=== PATIENT | male | born 1960 | race Caucasian/White ===

== ENCOUNTER 2016-09-05 10:49 | Inpatient (IN) ==
[2016-09-05] MEDS ORDERED: Nitroglycerin 0.4 MG TAB.SUBL SL ONE (11:35)
[2016-09-05 11:57] LABS: Basophils # 0.1 K/mcL (0.0-0.2); Basophils % 0.7 %; Eosinophils # 0.1 K/mcL (0.0-0.6); Eosinophils % 1.3 %; Hematocrit 32.3 % (37.5-50.1); Hemoglobin 9.9 g/dL (12.9-16.9); Immature Granulocytes % 0.3 % (0-4); Immature Platelets 2.4 % (1.1-6.1); Lymphocytes # 1.2 K/mcL (0.6-4.6); Lymphocytes % 12.6 %; Mean Corpuscular HGB Conc 30.7 g/dL (31.6-35.5); Mean Corpuscular Hemoglobin 29.4 pg (28.0-33.3); Mean Corpuscular Volume 95.8 fL (83.0-100.0); Mean Platelet Volume 9.4 fL (9.4-12.4); Monocytes # 0.5 K/mcL (0.0-1.3); Monocytes % 5.4 %; Neutrophils # 7.4 K/mcL (1.6-8.9); Platelet Count 202 K/mcL (140-400); Red Blood Count 3.37 M/mcL (4.19-5.50); Red Cell Distribution Width 17.6 % (11.5-14.5); Segmented Neutrophils % 79.7 %
[2016-09-05 12:04] LABS: INR 1.2; Prothrombin Time 13.1 Seconds (9.4-12.1)
[2016-09-05 12:07] LABS: Activated Partial Thrombo Time 34.6 Seconds (26.0-36.0)
[2016-09-05 12:14] LABS: Albumin 2.4 g/dL (3.5-5.0); Albumin/Globulin Ratio 0.5 (1.1-2.2); Bilirubin,Direct 0.3 mg/dL (0.0-0.5); Bilirubin,Indirect 0.3 mg/dL (0.0-1.2); Bilirubin,Total 0.6 mg/dL (0.2-1.2); Calcium 9.2 mg/dL (8.6-10.8); Potassium 4.5 mEq/L (3.5-4.5); Total Protein 7.4 g/dL (6.0-8.3)
--- NOTE | 2016-09-05 13:02 | Emergency Department Note ---
Disposition Clinical Impression: Acute respiratory distress, Bilateral pleural effusion Heart failure due to valvular disease Qualifiers: Congestive heart failure type: systolic Congestive heart failure chronicity: acute on chronic Qualified Code(s): I50.23 - Acute on chronic systolic ( congestive) heart failure; I38 - Endocarditis, valve unspecified Anemia Qualifiers: Anemia type: unspecified type Qualified Code(s): D64.9 - Anemia, unspecified Disposition: Admitted As Inpatient Condition: Serious Time of Disposition: 12:56 SOB HPI - General Chief Complaint: ED Shortness of Breath/Dyspnea Stated Complaint: RITA, recent open heart Time Seen by Provider: 09/05/16 10:59 Source: patient, family, EMS Mode of arrival: EMS Limitations: other Nursing Notes Reviewed: Yes Vital Signs Reviewed: Yes - History of Present Illness 56-year-old male complains of shortness of breath times this morning @ 0630 hrs. patient presents with abnormal vital signs of tachypnea 28 respirations him and hypertensive at 180/118. SPO2 96 on 4 L. 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 Patient received a cadaver valve. Patient is also on hemodialysis Monday and was doing fine after discharge from [facility] up until yesterday when his son states he required oxygen during the day and at night when he only uses at night regularly. Patient certainly had dyspnea on exertion this morning was unable to get dressed on his own and was unable to travel to 100 feet without feeling very short of breath. Patient has no chest pain - Related Data Home Medications Medication Instructions Recorded Confirmed Aspirin 81 mg PO DAILY 04/12/15 09/05/16 Insulin LISPRO [HumaLOG] 5 - 10 units SQ TID 04/12/15 09/05/16 Albuterol Sulfate [Ventolin Hfa] 2 puff IH Q6H PRN 07/17/16 09/05/16 Oxygen 3 l .ROUTE DAILY 07/17/16 09/05/16 Ergocalciferol (VITAMIN D2) 50,000 unit PO QWEEK 07/18/16 09/05/16 [Drisdol (50,000 Unit)] Benzonatate [Tessalon] 200 mg PO TID PRN 08/05/16 09/05/16 Amiodarone [Cordarone] 200 mg PO DAILY 09/05/16 09/05/16 Atorvastatin [Lipitor] 40 mg PO HS 09/05/16 09/05/16 Carvedilol [Coreg] 12.5 mg PO BIDWM 09/05/16 09/05/16 HYDROcodone/Acet 5/325 mg [Milton 1 tab PO Q6H PRN 09/05/16 09/05/16 5-325 mg] Penicillin G Sodium 6,000,000 unit IV Q12H 09/05/16 09/05/16 Vitamin B Complex [B Complex] 1 tab PO DAILY 09/05/16 09/05/16 Previous Rx's Medication Instructions Recorded Insulin Glargine,Hum.rec.anlog 20 unit SQ HS #0 07/13/16 [Lantus Solostar] Allergies Allergy/AdvReac Type Severity Reaction Status Date / Time No Known Allergies Allergy Verified 07/17/16 10:10 All systems ED: reviewed and negative except as stated. Constitutional: Reports: weakness. Denies: fever, chills Eyes: Denies: eye pain, eye discharge ENT ED: Denies: ear pain, throat pain Cardiovascular: Reports: dyspnea on exertion, orthopnea, paroxysmal nocturnal dyspnea. Denies: chest pain, palpitations Respiratory: Reports: cough, dyspnea, wheezes Gastrointestinal: Reports: nausea. Denies: abdominal pain, vomiting Genitourinary: Denies: urgency, dysuria Musculoskeletal: Denies: back pain, neck pain Integumentary: Denies: rash, abrasion Neurological: Denies: headache, weakness Psychiatric: Reports: anxiety Endocrine: Reports: fatigue Hematological/Lymphatic: Denies: easy bleeding, easy bruising Allergic/Immunologic: Denies: facial swelling, urticaria Past Medical History - Past Medical History Attestation: Yes The following information was validated with the patient. Medical history: Reports: CHF, coronary artery disease, diabetes, dialysis, hyperlipidemia, hypertension, myocardial infarction, renal disease Surgical history: Reports: coronary bypass (CABG) Psychiatric history: Reports: no psych history - Social History Smoking Status: Former smoker Smokeless Tobacco Status: No Alcohol use: Reports: none Drug use: Reports: none Physical Exam Vital Signs Temperature 97.5 F L 09/05/16 10:56 Pulse Rate 99 09/05/16 10:56 Respiratory Rate 28 09/05/16 10:56 Blood Pressure 180/118 09/05/16 10:56 O2 Sat by Pulse Oximetry 96 09/05/16 10:56 Temperature 97.5 F L 09/05/16 10:56 Pulse Rate 86 09/05/16 12:26 Respiratory Rate 26 09/05/16 12:26 Blood Pressure 137/99 09/05/16 12:26 O2 Sat by Pulse Oximetry 100 09/05/16 12:26 Oxygen Delivery Oxygen Delivery Bipap -General Appearance: Patient is a 56-year-old male who sitting on edge of the bed leaning forward and appears in distress. Patient is diaphoretic. -Neurological exam: Cranial nerves II-12 intact, no focal deficits observed, strength equal 5/5 bilaterally in upper and lower extremities, cerebellar motion test negative. Negative loss of sensation - Head Head exam: atraumatic, normocephalic, normal inspection - Eye Eye exam: Present: normal appearance, PERRL, EOMI, negative for scleral icterus negative for conjunctival pallor - ENT ENT exam: normal exam, normal oropharynx, mucous membranes moist - Neck Neck exam: Present: normal inspection, full ROM, trachea midline, negative JVD - Chest Chest inspection: Present: Patient has bilateral equal rise and fall of chest wall. Tender to palpation along surgical scar is midline and patient's chest secondary to open heart surgery.- Respiratory Respiratory exam: Heart snapping sound heard right lower lung field, distant lung sounds auscultated bilaterally Cardiovascular Cardiovascular exam: Present: regular rate, normal rhythm, normal heart sounds, without murmurs rubs or gallops. - Abdominal Exam Abdominal exam: Present: soft, nondistended, Non-Tender light and deep palpation in all quadrants. Bowel sounds normoactive throughout all 4 quadrants. Negative for hyper or hyperresonance. - Extremities Exam Extremities exam: Present: normal inspection, full ROM, negative pedal edema pulses equal regular of her lower extremities but weak. - Back Exam Back exam: Present: normal inspection, full ROM. Absent: tenderness, CVA tenderness (R), CVA tenderness (L) - Psychiatric Psychiatric exam: Present: normal affect, normal mood - Skin Skin exam: Present: warm, dry, intact, normal color - General Limitations: other General appearance: in distress Course Course Narrative: She was seen and examined. Labs ordered chest x-ray ordered BiPAP ordered - Reevaluation(s) Reevaluation #1: bedside ultrasound shows no signs of pericardial effusion. Waiting for BiPAP Time: 11:34 Reevaluation #2: BiPAP was initiated. Patient feels relief and breathing rate has been reduced from 28, to 20-22 breaths or minute. Time: 11:56 Reevaluation #3: Patient currently experiencing change in heart rate patient. The bradycardia of 46 bpm intermittently. Patient has no change in mental status and states he also otherwise feels fine. Ordered EKG and reassessing patient. Time: 13:31 - Consultations Consultation #1: Dr. Simon refused admission secondary to discomfort level to have patient's comorbidities and recommended transfer to [facility]. Time: 12:36 Consultation #2: Dr. Maynard Accepted for admission Time: 12:56 Vital Signs Temperature 97.5 F L 09/05/16 10:56 Pulse Rate 99 09/05/16 10:56 Respiratory Rate 28 09/05/16 10:56 Blood Pressure 180/118 09/05/16 10:56 O2 Sat by Pulse Oximetry 96 09/05/16 10:56 Temperature 97.4 F L 09/05/16 21:40 Pulse Rate 95 09/05/16 16:39 Respiratory Rate 24 09/05/16 21:40 Blood Pressure 134/49 09/05/16 21:40 O2 Sat by Pulse Oximetry 94 L 09/05/16 16:39 Oxygen Delivery Oxygen Delivery Bipap Shortness of Breath/Dyspnea - MDM Narrative Medical decision making narrative: Mr. Sandhu is a 56-year-old male whose conditions concerning for worsening chronic heart failure versus acute exacerbation of chronic heart failure secondary to sepsis secondary to possible pneumonia or endocarditis. Patient has severe respiratory distress requiring use of BiPAP. BiPAP was applied and patient was able to ventilate and oxygenate better. Patient also on hemodialysis. CXR: Chest X-Ray 09/05/16 11:28 IMPRESSION: Venous lines project in normal positions. Right basilar pleural effusion and atelectasis or airspace disease. Interstitial opacities, likely pulmonary edema. D/ / Carlton Deshpande MD / Carlton Deshpande MD Interpreting Provider: Carlton Deshpande MD Patient's CBC see shows anemia at 9.9 hemoglobin. Patient's troponin was 0.04. Patient's BNP was greater than 5000. Patient does not appear septic at this time the patient is fluid overloaded. The patient does have an acute exacerbation of his HF. Dr. Maynard accepted Pt for admission. - Medical Records Medical records reviewed: Yes I reviewed the patient's medical records. - Lab Data Lab results reviewed: Yes I reviewed the patient's lab results. Lab results narrative: Short CBC 09/05/16 Range/Units 11:46 WBC 9.2 (4.3-11.1) K/mcL Hgb 9.9 L (12.9-16.9) g/dL Hct 32.3 L (37.5-50.1) % Plt Count 202 (140-400) K/mcL Neutrophils # 7.4 (1.6-8.9) K/mcL BMP 09/05/16 Range/Units 11:46 Sodium 140 (136-145) mEq/L Potassium 4.5 (3.5-4.5) mEq/L Chloride 104 (98-109) mEq/L Carbon Dioxide 23 (19-29) mEq/L BUN 28 H (8-26) mg/dL Creatinine 4.75 H (0.72-1.25) mg/dL Glucose 151 H (70-99) mg/dL Calcium 9.2 (8.6-10.8) mg/dL Cardiac Enzymes 09/05/16 Range/Units 11:46 Troponin I 0.04 H* (0-0.03) ng/mL Liver Function 09/05/16 Range/Units 11:46 Total Bilirubin 0.6 (0.2-1.2) mg/dL Direct Bilirubin 0.3 (0.0-0.5) mg/dL AST 13 (5-34) Units/L ALT 9 (0-55) Units/L Alkaline Phosphatase 127 H (38-126) Units/L Albumin 2.4 L (3.5-5.0) g/dL Result diagrams: 09/05/16 11:46 09/05/16 11:46 Lab Results 09/05/16 09/05/16 09/05/16 Range/Units 11:46 11:46 11:46 WBC 9.2 (4.3-11.1) K/mcL RBC 3.37 L (4.19-5.50) M/mcL Hgb 9.9 L (12.9-16.9) g/dL Hct 32.3 L (37.5-50.1) % MCV 95.8 (83.0-100.0) fL MCH 29.4 (28.0-33.3) pg MCHC 30.7 L (31.6-35.5) g/dL RDW 17.6 H (11.5-14.5) % Plt Count 202 (140-400) K/mcL MPV 9.4 (9.4-12.4) fL Immature Gran % 0.3 (0-4) % Seg Neutrophils % 79.7 % Lymphocytes % 12.6 % Monocytes % 5.4 % Eosinophils % 1.3 % Basophils % 0.7 % Neutrophils # 7.4 (1.6-8.9) K/mcL Lymphocytes # 1.2 (0.6-4.6) K/mcL Monocytes # 0.5 (0.0-1.3) K/mcL Eosinophils # 0.1 (0.0-0.6) K/mcL Basophils # 0.1 (0.0-0.2) K/mcL Immature Plt Fraction 2.4 (1.1-6.1) % PT 13.1 H (9.4-12.1) Seconds INR 1.2 APTT 34.6 (26.0-36.0) Seconds Sodium 140 (136-145) mEq/L Potassium 4.5 (3.5-4.5) mEq/L Chloride 104 (98-109) mEq/L Carbon Dioxide 23 (19-29) mEq/L BUN 28 H (8-26) mg/dL Creatinine 4.75 H (0.72-1.25) mg/dL Est GFR ( Amer) 16 L (> 60) Est GFR (Non-Af Amer) 13 L (> 60) BUN/Creatinine Ratio 6 (6-26) Glucose 151 H (70-99) mg/dL Calculated Osmolality 298 (280-300) Lactic Acid (0.5-2.2) mmol/L Calcium 9.2 (8.6-10.8) mg/dL Total Bilirubin 0.6 (0.2-1.2) mg/dL Direct Bilirubin 0.3 (0.0-0.5) mg/dL Indirect Bilirubin 0.3 (0.0-1.2) mg/dL AST 13 (5-34) Units/L ALT 9 (0-55) Units/L Alkaline Phosphatase 127 H (38-126) Units/L Troponin I (0-0.03) ng/mL B-Natriuretic Peptide (0-100) pg/mL Serum Total Protein 7.4 (6.0-8.3) g/dL Albumin 2.4 L (3.5-5.0) g/dL Globulin 5.0 H (2.4-3.5) g/dL Albumin/Globulin Ratio 0.5 L (1.1-2.2) 09/05/16 09/05/16 09/05/16 Range/Units 11:46 11:46 11:46 WBC (4.3-11.1) K/mcL RBC (4.19-5.50) M/mcL Hgb (12.9-16.9) g/dL Hct (37.5-50.1) % MCV (83.0-100.0) fL MCH (28.0-33.3) pg MCHC (31.6-35.5) g/dL RDW (11.5-14.5) % Plt Count (140-400) K/mcL MPV (9.4-12.4) fL Immature Gran % (0-4) % Seg Neutrophils % % Lymphocytes % % Monocytes % % Eosinophils % % Basophils % % Neutrophils # (1.6-8.9) K/mcL Lymphocytes # (0.6-4.6) K/mcL Monocytes # (0.0-1.3) K/mcL Eosinophils # (0.0-0.6) K/mcL Basophils # (0.0-0.2) K/mcL Immature Plt Fraction (1.1-6.1) % PT (9.4-12.1) Seconds INR APTT (26.0-36.0) Seconds Sodium (136-145) mEq/L Potassium (3.5-4.5) mEq/L Chloride (98-109) mEq/L Carbon Dioxide (19-29) mEq/L BUN (8-26) mg/dL Creatinine (0.72-1.25) mg/dL Est GFR ( Amer) (> 60) Est GFR (Non-Af Amer) (> 60) BUN/Creatinine Ratio (6-26) Glucose (70-99) mg/dL Calculated Osmolality (280-300) Lactic Acid 0.7 (0.5-2.2) mmol/L Calcium (8.6-10.8) mg/dL Total Bilirubin (0.2-1.2) mg/dL Direct Bilirubin (0.0-0.5) mg/dL Indirect Bilirubin (0.0-1.2) mg/dL AST (5-34) Units/L ALT (0-55) Units/L Alkaline Phosphatase (38-126) Units/L Troponin I 0.04 H* (0-0.03) ng/mL B-Natriuretic Peptide > 5000 H (0-100) pg/mL Serum Total Protein (6.0-8.3) g/dL Albumin (3.5-5.0) g/dL Globulin (2.4-3.5) g/dL Albumin/Globulin Ratio (1.1-2.2) - Radiology Data Radiology results reviewed: Yes I reviewed the patient's radiology results. Chest X-Ray 09/05/16 11:28 IMPRESSION: Venous lines project in normal positions. Right basilar pleural effusion and atelectasis or airspace disease. Interstitial opacities, likely pulmonary edema. D/ / Carlton Deshpande MD / Carlton Deshpande MD Interpreting Provider: Carlton Deshpande MD - EKG Data EKG attestation: Yes I reviewed and interpreted this EKG. Attestation Statement - Attestation Attestation: For this encounter, I have reviewed the resident, O[employer] WORK[employer]IST, or PA documentation, treatment plan, and medical decision making; and I have had face to face time with this patient. 6-year-old male presents with difficulty breathing. Patient states that his breathing has significantly worsened over the past 24-48 hours. Patient now is diaphoretic at rest, having significant respiratory distress in the emergency department. 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 His valve was replaced one month ago at [facility]. He has followed Dr. Montague for cardiology in the past. Patient was initially tachycardic, hypertensive, tachypneic with rales on bilateral posterior lung ramirez. Patient was given nitroglycerin with significant improvement of symptoms. He further improved after administration of BiPAP. X- ray shows bilateral venous congestion and a right pleural effusion. EKG initially showed sinus tachycardia with a rate of 100 and right bundle-branch block. Repeat EKG after interventions showed sinus bradycardia with a rate of 58 with multiple PVCs and continued right bundle branch block. Patient agreed with plan for admission to the hospital and requested to stay at [facility] and did not want to be transferred to [facility]. I spoke with Dr. Montague who agreed that the patient was likely able to stay at [facility] for continuation of his care. Dr. Simon refused the admission stating that she would "not know what to do" if the patient's condition worsened and was concerned that we did not have a echocardiogram on file since the patient's aortic valve replacement.. I contacted Dr. Maynard who is the labor and employment paralegal on-call for Dr. Montague who agreed to admit the patient to the hospital with internal medicine consult for the patient's other comorbidities.
--- NOTE | 2016-09-05 15:53 | Cardiology History & Physical ---
Date of Encounter: 09/05/16 Time of Encounter: 15:44 Assessment and Plan (1) Systolic CHF Current Visit: Yes Status: Acute 08/18/16 EF 26%--global hypokinesis with severe global systolic dysfunction. RV mildly enlarged with moderately reduced systolic function. BNP >5000. CXR shows right basilar pleural effusion and atelectasis or airspace disease. Interstitial opacities likely pulmonary edema. Suspect current symptoms/fluid volume overload are multifactoral in combination with his ESRD on dialysis--last dialysis session Monday, was scheduled for today. Dr. Church consulted for HD to help with fluid volume status. Pt makes little to no urine, so diuretics are not effective. Will continue to monitor. Recommed strict I/Os, daily weights, sodium and fluid restriction. If EF remains <35% 3 months after valve replacement, will need to discuss outpt ICD. Qualifiers: Congestive heart failure chronicity: acute on chronic Qualified Code(s): I50.23 - Acute on chronic systolic (congestive) heart failure (2) S/P aortic valve replacement Current Visit: Yes Status: Acute S/P bioprosthetic AVR 08/10/16 for S. Bovis bacteremia, subsequently causing aortic valve endocarditis. Is on IV Penicillin 6 million units [id number] x 4 weeks. End date 09/07/16--will continue until this date while inpt. Echo08/18/[address] #[address] [place]o bioprosthetic valve implanted 08/10 with peak and MG of 14.5 mmHg and 8 mmHg. DI 0.45 with estimated ROBI 1.56cm2, mild- moderate MR, traice-mild TR. (3) Fluid overload Current Visit: Yes Status: Acute Multifactoral, as above--systolic CHF and ESRD on dialysis M, W, F. Last session was Monday. Nephrology consulted for HD. Makes little to no urine, so need HD to improve volume status, as diuretics will not benefit. Qualifiers: Hypervolemia type: other Qualified Code(s): E87.79 - Other fluid overload (4) Coronary artery disease Current Visit: Yes Status: Chronic S/P CABG x 4 04/2015. Continue ASA, Statin, BB, DIANA-I. Qualifiers: Coronary Disease-Associated Artery/Lesion type: bypass graft [place] vs. transplanted heart: [place] heart Associated angina: without angina Qualified Code(s): I25.810 - Atherosclerosis of coronary artery bypass graft(s) without angina pectoris (5) End stage renal disease on dialysis Current Visit: Yes Status: Chronic Nephrology consulted for HD while inpt. (6) Hypertension, uncontrolled Current Visit: Yes Status: Chronic BP 180/110 on presentation--currently 150s/100s. Per son, BP has been increasing since valve replacement. On Coreg 12.5mg BID. Lisinopril 10mg daily was just restarted on . Will increase DIANA-I and order PRN IV Hydralazine. Continue to monitor and make adjustments to antihypertensives as necessary. (7) Obesity (BMI 30-39.9) Current Visit: Yes Status: Chronic Lifestyle modification necessary. (8) Elevated troponin Current Visit: Yes Status: Acute Borderline--0.04 in setting of fluid volume overload, systolic CHF, hypertensive urgency, and ESRD on dialysis. Nondiagnostic for ACS. Pt denies chest pain. (9) Cardiomyopathy Current Visit: Yes Status: Acute EF prior to AVR was 40%. S/P AVR echo 08/18 EF noted to be 26%. Continue BB and DIANA-I. Recheck echo in 3 months and if EF remains <35%, will need to discuss ICD. Qualifiers: Cardiomyopathy type: unspecified Qualified Code(s): I42.9 - Cardiomyopathy , unspecified (10) Type 2 diabetes mellitus Current Visit: Yes Status: Chronic Insulin dependent. Sliding scale as inpt. Qualifiers: Diabetes mellitus complication status: with unspecified complications Diabetes mellitus exterminator helper insulin use: with prison use Qualified Code(s) : E11.8 - Type 2 diabetes mellitus with unspecified complications; Z79.4 - jail (current) use of insulin History of Present Illness Chief complaint: Dyspnea HPI: Mr. Sandhu is a 56 year old male with PMH signficant for CAD s/p 4v CABG ( ), HTN, ESRD on dialysis, obesity, DMII, combined systolic and diastolic CHF, recent S. bovis bacteremia and subsequent aortic valve endocarditis--this was discovered 07/2016 and he was transferred to [facility] to [facility] for surgical intervention. He had a redo sternotomy and AVR with 25mm [place] Rodrigo Trifecta valve and aortic valve augmentation with bovine pericardium. He was discharged 08/18/16 and has been stable until he woke this AM with worsening dyspnea. He was scheduled for dialysis today---has not had it since Monday. He is on a , W, schedule. He reported dyspnea that was not improving with O2 NC and sats were in the lower 90s. He notes a cough over the past couple days-- productive and brown in color. He has noticed slight increase in lower extremity edema today, but reports it is not too significant. He denies chest pain, dizziness, lightheadedness, syncope, palpitations. He is currently on BiPAP and reports feeling better. He makes little to no urine with his ESRD. BNP found to be >5000. CXR revealed right basilar pleural effusion and atelectasis or airspace disease. Interstitial opacities likely pulmonary edema. Troponin 0.04. BP 180/118 on presentation--reports increasing blood pressure since valve replacement--has been running 150s/100s at home. Records reviewed from [facility]. Most recent echo 08/18/16 EF 26%--global hypokinesis with severe global systolic dysfunction. RV mildly enlarged with moderately reduced systolic function. Moderate biatrial enlargement. #[address] Rodrigo bioprosthetic valve implanted 08/10 with peak and MG of 14.5 mmHg and 8 mmHg. DI 0.45 with estimated ROBI 1.56cm2, mild-moderate MR, traice-mild TR. Past Med Surg Social Fam HX - Past Medical History Medical history: CHF, coronary artery disease, diabetes, dialysis, hyperlipidemia, hypertension, myocardial infarction, renal disease, valvular heart disease Psychiatric history: no psych history - Past Surgical History Surgical History: coronary bypass (CABG), other (Aortic valve replacement.) - Social History Smoking Status: Former smoker Smokeless Tobacco Status: No Alcohol use: none Drug use: none - Family History Father Family Member Ethnicity: Non- Living Status: Hx Family Cardiac Disorders: No Hx Family Respiratory Disorders: No Hx Family Cancer: No Hx Family GI Disorders: No Hx Family Endocrine Disorder: No Hx Family Neuromuscular Disorders: No Hx Family Neurologic Disorders: No Hx Family HEENT Disorders: No Hx Family Autoimmune Disorders: No Medications and Allergies Aspirin 81 mg PO DAILY 04/12/15 [History] Insulin LISPRO [HumaLOG] 5 - 10 units SQ TID 04/12/15 [History] Ascorbic Acid [Vitamin C] 500 mg PO DAILY #20 tablet 11/23/16 [Rx] Calcium Carbonate [Tums] 1,000 mg PO TID #30 tab.chew 07/13/16 [Rx] Insulin Glargine,Hum.rec.anlog [Lantus Solostar] 20 unit SQ HS #0 07/13/16 [Rx] Albuterol Sulfate [Ventolin Hfa] 2 puff IH Q6H PRN 07/17/16 [History] Oxygen 3 l .ROUTE DAILY 07/17/16 [History] Ergocalciferol (VITAMIN D2) [Drisdol (50,000 Unit)] 50,000 unit PO QWEEK [History] Carvedilol [Coreg] 3.125 mg PO BIDWM #60 tablet 07/22/16 [Rx] Furosemide [Lasix] 40 mg PO DAILY PRN #20 tablet 07/22/16 [Rx] Benzonatate [Tessalon] 200 mg PO TID PRN 08/05/16 [History] Lisinopril [Zestril] 10 mg PO DAILY 08/05/16 [History] Atorvastatin [Lipitor] 40 mg PO HS 09/05/16 [History] Folic Acid 1 mg PO DAILY 09/05/16 [History] HYDROcodone/Acet 5/325 mg [[place] 5-325 mg] 1 tab PO Q6H PRN 09/05/16 [History] Penicillin G Sodium 6,000,000 unit IV Q12H 09/05/16 [History] Vitamin B Complex [B Complex] 1 tab PO DAILY 09/05/16 [History] Allergies No Known Allergies Allergy (Verified 07/17/16 10:10) All Systems Review: A 10-system review of systems was performed and is negative for pertinent findings except as documented above in the HPI. - Cardiovascular Cardiovascular: as per HPI, dyspnea at rest, dyspnea on exertion, leg edema, orthopnea - Respiratory Respiratory: cough, dyspnea Physical Examination Vital Signs, Last 4 Hours Resp BP 09/05/16 14:45 24 148/110 Vital Signs Temp Pulse Resp BP Pulse Ox 09/05/16 14:45 24 148/110 09/05/16 13:21 51 26 153/104 100 09/05/16 12:26 86 26 137/99 100 09/05/16 11:49 34 95 09/05/16 11:22 95 28 154/106 96 09/05/16 10:56 97.5 F L 99 28 180/118 96 Intake and Output 09/04/16 09/05/16 09/05/16 23:59 07:59 15:59 Other: Weight 61.235 kg Patient Weight 09/05/16 23:59 Weight 61.235 kg General: Conversant, Other (on Bipap) HEENT: Atraumatic, Normocephaly, Mucus Membranes Moist Neck: Normal carotid pulses Cardiac: Reg Rate and Rhythm, Normal S1 and S2, Other (grade 2 SANDRA) Lungs: Other (diminished) Neuro: Alert and responsive, No focal deficits noted Abdomen: Soft, Non-Tender Skin: No rashes noted on visualized skin Musculoskeletal: No Chest Wall Tenderness Extremities: Other (mild BLE edema) Results 09/05/16 11:46 09/05/16 11:46 Short CBC 09/05/16 Range/Units 11:46 WBC 9.2 (4.3-11.1) K/mcL Hgb 9.9 L (12.9-16.9) g/dL Hct 32.3 L (37.5-50.1) % Plt Count 202 (140-400) K/mcL Neutrophils # 7.4 (1.6-8.9) K/mcL BMP 09/05/16 Range/Units 11:46 Sodium 140 (136-145) mEq/L Potassium 4.5 (3.5-4.5) mEq/L Chloride 104 (98-109) mEq/L Carbon Dioxide 23 (19-29) mEq/L BUN 28 H (8-26) mg/dL Creatinine 4.75 H (0.72-1.25) mg/dL Glucose 151 H (70-99) mg/dL Calcium 9.2 (8.6-10.8) mg/dL Cardiac Enzymes 09/05/16 Range/Units 11:46 Troponin I 0.04 H* (0-0.03) ng/mL Liver Function 09/05/16 Range/Units 11:46 Total Bilirubin 0.6 (0.2-1.2) mg/dL Direct Bilirubin 0.3 (0.0-0.5) mg/dL AST 13 (5-34) Units/L ALT 9 (0-55) Units/L Alkaline Phosphatase 127 H (38-126) Units/L Albumin 2.4 L (3.5-5.0) g/dL Impressions Chest X-Ray 09/05/16 11:28 IMPRESSION: Venous lines project in normal positions. Right basilar pleural effusion and atelectasis or airspace disease. Interstitial opacities, likely pulmonary edema. D/ / Carlton Deshpande MD / Carlton Deshpande MD Interpreting Provider: Carlton Deshpande MD - Imaging and Cardiology Chest Xray: report reviewed Echo: report reviewed (08/18/16 EF 26%--global hypokinesis with severe global systolic dysfunction. RV mildly enlarged with moderately reduced systolic function. Moderate biatrial enlargement. #[address] Rodrigo bioprosthetic valve implanted 08/10 with peak and MG of 14.5 mmHg and 8 mmHg. DI 0.45 with estimated ROBI 1.56cm2, mild-moderate MR, traice-mild TR.) - EKG Interpretation EKG results cardiology: personally reviewed (SR, PVCs, RBBB) - Attending Attestation I will discuss all the above with Dr. Maynard and make changes as necessary.
[2016-09-05] MEDS ORDERED: 0.9 % Sodium Chloride 250 ML IV PRN (16:24)
--- NOTE | 2016-09-05 16:24 | Nephrology Consult Note ---
Date of Encounter: 09/05/16 Time of Encounter: 16:00 Assessment and Plan (1) End stage renal disease on dialysis Current Visit: Yes Status: Chronic ESRD on HD. He will need urgent HD today. I've arranged for him to bump ahead to the front of the line, to be next for dialysis. Today at [facility] there are very many dialysis patients who happen to be hospitalized, but with his dyspnea, I arranged for him to be the next patient to be dialyzed. Will arrange for 3hr 45 min, 2K and at least 3kg as tolerated for UF. HTN: this should improve with UF on dialysis. Edema: his LE edema overall is far better than 6 months ago, before starting dialysis. Goal Hgb is 10-11. Renal diet but would also agree with a cardiac/low sodium diet Access: left Tunneled dialysis catheter. He has previously been referred to Vascular Surgery for an AVF, but this has yet to be placed in part due to his frequent hospitalizations. Will follow with you. Thank you for consulting the [facility] group. (2) Fluid overload Current Visit: Yes Status: Acute HD today for fluid removal, which should also help improve his volume status. Will assess for UF tomorrow as well. Qualifiers: Hypervolemia type: other Qualified Code(s): E87.79 - Other fluid overload (3) S/P aortic valve replacement Current Visit: Yes Status: Acute As per primary He is getting outpt IV Abx. (4) Hypertension, uncontrolled Current Visit: Yes Status: Chronic See above. History of Present Illness - Reason for Consult Consult date: 09/05/16 end stage renal disease Requesting physician: Phuc Maynard - Chief Complaint Shortness of breath; Missed Dialysis - History of Present Illness Deepika Sandhu is a very pleasant 56 y/o gentleman with a pmh of T2DM, HTN, CAD s/ p CABG, ESRD on HD M/W/F and et al who presented with shortness of breath and missed dialysis. He was recently diagnosed with endocarditis and required valvular surgery at [facility] and is getting IV antibiotics at home. His shortness of breath has been worsening, he said, for the last few days and he was so ill that he missed his regularly scheduled dialysis today. He was accompanied by his son. I am his primary geoscience laboratory technician; he dialyzes at [facility] in [place], [place], via a Tunneled HD catheter. He said that while he was at [facility], the Tunneled HD catheter was removed and then placed on the left. He has a right tunneled CVC as well for home IV antibiotics. He did not affirm any new rashes, N/V/D or F/C or dysuria. He does not make much urine he said, at this point. Past Med Surg Social Fam HX - Past Medical History Medical history: CHF, coronary artery disease, diabetes, dialysis, hyperlipidemia, hypertension, myocardial infarction, renal disease, valvular heart disease Psychiatric history: no psych history - Past Surgical History Surgical History: coronary bypass (CABG), other (Aortic valve replacement.) - Social History Smoking Status: Former smoker Smokeless Tobacco Status: No Alcohol use: none Drug use: none - Family History Father Family Member Ethnicity: Non- Living Status: Hx Family Cardiac Disorders: No Hx Family Respiratory Disorders: No Hx Family Cancer: No Hx Family GI Disorders: No Hx Family Endocrine Disorder: No Hx Family Neuromuscular Disorders: No Hx Family Neurologic Disorders: No Hx Family HEENT Disorders: No Hx Family Autoimmune Disorders: No Medications and Allergies Aspirin 81 mg PO DAILY 04/12/15 [History] Insulin LISPRO [HumaLOG] 5 - 10 units SQ TID 04/12/15 [History] Insulin Glargine,Hum.rec.anlog [Lantus Solostar] 20 unit SQ HS #0 07/13/16 [Rx] Albuterol Sulfate [Ventolin Hfa] 2 puff IH Q6H PRN 07/17/16 [History] Oxygen 3 l .ROUTE DAILY 07/17/16 [History] Ergocalciferol (VITAMIN D2) [Drisdol (50,000 Unit)] 50,000 unit PO QWEEK [History] Benzonatate [Tessalon] 200 mg PO TID PRN 08/05/16 [History] Amiodarone [Cordarone] 200 mg PO DAILY 09/05/16 [History] Atorvastatin [Lipitor] 40 mg PO HS 09/05/16 [History] Carvedilol [Coreg] 12.5 mg PO BIDWM 09/05/16 [History] HYDROcodone/Acet 5/325 mg [[place] 5-325 mg] 1 tab PO Q6H PRN 09/05/16 [History] Penicillin G Sodium 6,000,000 unit IV Q12H 09/05/16 [History] Vitamin B Complex [B Complex] 1 tab PO DAILY 09/05/16 [History] Allergies No Known Allergies Allergy (Verified 07/17/16 10:10) Review of Systems All Systems: reviewed and no additional remarkable complaints except as stated Exam - Vital Signs Vital signs: Initial Vital Signs Temp Pulse Resp BP Pulse Ox 97.5 F L 99 28 180/118 96 09/05/16 10:56 09/05/16 10:56 09/05/16 10:56 09/05/16 10:56 09/05/16 10:56 Vital Signs - Last 8 Hours Resp BP 09/05/16 14:45 24 148/110 - General Appearance General appearance: obese, moderate distress, chronically ill, frail EENT: ATNC, PERRL, mucous membranes moist Neck: supple Respiratory: rales, course breath sounds Cardiology: edema (1+ pretibial pitting edema b/l), normal S1, normal S2 - Dialysis Access Dialysis Vascular Access: Venous Catheter (Left Tunneled Dialysis catheter) Gastrointestinal: normoactive bowel sounds, no tenderness, no guarding Integumentary: warm and dry Neurologic: no asterixis, alert and oriented x3 Musculoskeletal: no deformities, no cyanosis, no clubbing Psychiatric: mood/affect appropriate, cooperative Results - Lab Results 09/05/16 11:46 09/05/16 11:46 Most recent lab results Calcium 9.2 mg/dL (8.6-10.8) 09/05/16 11:46 I reviewed the above auto-generated data, including labs, meds and vitals and imaging. Consult Discharge Plan - Plan Referrals: NO,PCP [Primary Care Provider] -
[2016-09-05] MEDS ORDERED: Dextrose Gel 15 GM PO PRN ×2 (16:46)
[2016-09-05] MEDS ORDERED: *HR* Dextrose 50 % in Water (Syg) 50 ML SYRINGE IVP PRN (16:46)
[2016-09-05] MEDS ORDERED: D5% in Water 1,000 ML IV PRN (16:46)
[2016-09-05] MEDS ORDERED: *HR* HYDROcodone/Acet 5/325 mg TABLET PO PRN (16:48)
[2016-09-05] MEDS ORDERED: Acetaminophen 325 MG TABLET PO PRN (16:51)
[2016-09-05] MEDS ORDERED: Insulin DETEMIR 100 UNIT/ML X5UNITS SQ SCH (21:00)
[2016-09-05] MEDS: Insulin LISPRO 300 UNITS/3 ML VIAL SQ SCH (22:13)
[2016-09-05] MEDS: Ampicillin 2 GM in 0.9 % Sodium Chloride Mini Bag 100 ML IVPB SCH (22:24)
[2016-09-05] MEDS: *HR* Heparin 5,000 UNIT/ML VIAL SQ SCH (22:28)
[2016-09-06] MEDS: Ampicillin 2 GM in 0.9 % Sodium Chloride Mini Bag 100 ML IVPB SCH ×4 (01:03→12:47)
[2016-09-06 05:16] LABS: Basophils # 0.1 K/mcL (0.0-0.2); Eosinophils # 0.2 K/mcL (0.0-0.6); Eosinophils % 2.6 %; Hematocrit 30.3 % (37.5-50.1); Hemoglobin 9.6 g/dL (12.9-16.9); Immature Granulocytes % 0.4 % (0-4); Lymphocytes # 1.8 K/mcL (0.6-4.6); Lymphocytes % 22.6 %; Mean Corpuscular HGB Conc 31.7 g/dL (31.6-35.5); Mean Corpuscular Hemoglobin 29.7 pg (28.0-33.3); Mean Corpuscular Volume 93.8 fL (83.0-100.0); Mean Platelet Volume 9.9 fL (9.4-12.4); Monocytes # 0.7 K/mcL (0.0-1.3); Neutrophils # 5.2 K/mcL (1.6-8.9); Platelet Count 208 K/mcL (140-400); Red Blood Count 3.23 M/mcL (4.19-5.50); Red Cell Distribution Width 17.2 % (11.5-14.5); Segmented Neutrophils % 64.4 %
[2016-09-06 05:32] LABS: Albumin 2.2 g/dL (3.5-5.0); Calcium 8.6 mg/dL (8.6-10.8); Magnesium 1.7 mg/dL (1.6-2.6); Phosphorous 3.9 mg/dL (2.3-4.7); Potassium 3.5 mEq/L (3.5-4.5)
[2016-09-06 07:42] VITALS: BP 137/89
[2016-09-06] MEDS ORDERED: Aspirin 81 MG TAB.CHEW PO SCH (09:00)
[2016-09-06] MEDS ORDERED: Vitamin B Complex/Vit C/Vit E 1 EACH TABLET PO SCH (09:00)
[2016-09-06] MEDS ORDERED: Lisinopril 20 MG TABLET PO SCH (09:00)
[2016-09-06] MEDS: Insulin LISPRO 300 UNITS/3 ML VIAL SQ SCH ×2 (09:07→12:00)
[2016-09-06] MEDS: *HR* Heparin 5,000 UNIT/ML VIAL SQ SCH (09:14)
--- NOTE | 2016-09-06 09:25 | Cardiology Progress Note ---
Date of Encounter: 09/06/16 Time of Encounter: 09:23 Assessment and Plan (1) Pleural effusion Current Visit: Yes Status: Acute Persistent pleural effusion despite dialysis. IR consulted for thoracentesis. (2) Acute respiratory distress Current Visit: Yes Status: Acute (3) Cardiomyopathy Current Visit: Yes Status: Acute EF prior to AVR was 40%. S/P AVR echo 08/18 EF noted to be 26%. Continue BB and DIANA-I. Recheck echo in 3 months and if EF remains <35%, will need to discuss ICD. CHF education reviewed. Low sodium diet and daily weights. Fluid status per nephrology. Pt on dialysis. Qualifiers: Cardiomyopathy type: unspecified Qualified Code(s): I42.9 - Cardiomyopathy , unspecified (4) Elevated troponin Current Visit: Yes Status: Acute Borderline--0.04 in setting of fluid volume overload, systolic CHF, hypertensive urgency, and ESRD on dialysis. Nondiagnostic for ACS. Pt denies chest pain. (5) S/P aortic valve replacement Current Visit: Yes Status: Acute S/P bioprosthetic AVR 08/10/16 for S. Bovis bacteremia, subsequently causing aortic valve endocarditis. Is on IV Penicillin 6 million units [id number] x 4 weeks. End date 09/07/16. IV antibiotic completed tomorrow. Pt has f/u 09/08/16 with ID at [facility]. Echo08/18/16 #[address] Rodrigo bioprosthetic valve implanted 08/10 with peak and MG of 14.5 mmHg and 8 mmHg. DI 0.45 with estimated ROBI 1.56cm2, mild- moderate MR, traice-mild TR. (6) Systolic CHF Current Visit: Yes Status: Acute 08/18/16 EF 26%--global hypokinesis with severe global systolic dysfunction. RV mildly enlarged with moderately reduced systolic function. BNP >5000. Initial CXR shows right basilar pleural effusion and atelectasis or airspace disease. Interstitial opacities likely pulmonary edema. Repeat CXR shows persistent right pleural effusion. Thoracentesis ordered for today with IR. IR notified. SOB improved after dialysis. Appreciate nephrology input. Will continue to monitor. Recommed strict I/Os, daily weights, sodium and fluid restriction. If EF remains <35% 3 months after valve replacement, will need to discuss outpt ICD. Qualifiers: Congestive heart failure chronicity: acute on chronic Qualified Code(s): I50.23 - Acute on chronic systolic (congestive) heart failure (7) Coronary artery disease Current Visit: Yes Status: Chronic S/P CABG x 4 04/2015. Continue ASA, Statin, BB, DIANA-I. Qualifiers: Coronary Disease-Associated Artery/Lesion type: bypass graft [place] vs. transplanted heart: [place] heart Associated angina: without angina Qualified Code(s): I25.810 - Atherosclerosis of coronary artery bypass graft(s) without angina pectoris (8) End stage renal disease on dialysis Current Visit: Yes Status: Chronic Nephrology consulted for HD while inpt. (9) Pulmonary nodules Current Visit: Yes Status: Acute CT scan at [facility] showed pulmonary nodules. F/u CT scan was recommended in 6-8 wks. F/u CT scan ordered in September. Discussion w patient/family: The assessment and plan as outlined above was discussed with the patient and/or family members who expressed understanding and agreement. All questions were answered. Thank you for involving us in the care of your patient. Please call with any questions. Subjective Principal diagnosis: 09/06/16 Interval history: Mr. Sandhu reports he is breathing better after having dialysis yesterday. Denies chest or back pain. He notices his socks being tight this morning. His is at his bedside. Reports they pay close attention to his salt intake and weights at home with him being on dialysis. Objective Vital Signs, Last 4 Hours Temp Pulse Resp BP Pulse Ox 09/06/16 07:43 97.9 F 84 10 137/89 97 09/06/16 07:40 97.9 F 84 10 137/89 97 General: Conversant, No Apparent Distress HEENT: Atraumatic, Normocephaly, Mucus Membranes Moist Neck: No JVD, Normal carotid pulses Cardiac: Reg Rate and Rhythm, Normal S1 and S2, No Murmur Lungs: Normal Breath Sounds, No Wheeze, Rales, Rhonchi, Other (Diminished in the bases.) Neuro: Alert and responsive, No focal deficits noted Abdomen: Soft, Non-Tender Skin: No rashes noted on visualized skin, Other (Midline sternal incision BORDER POLICE, sutures intact, well approximated. 3 chest tube sites are scabbed over. ) Musculoskeletal: No Chest Wall Tenderness Extremities: Other (1+ BLE bilateral ankle edema noted. ) Results 09/06/16 04:50 09/06/16 04:50 Lab Results 09/06/16 09/06/16 04:50 04:50 WBC 8.1 Hgb 9.6 L Hct 30.3 L Plt Count 208 Sodium 140 Potassium 3.5 D Chloride 100 Carbon Dioxide 30 H BUN 14 D Creatinine 2.91 H Glucose 59 L Calcium 8.6 Magnesium 1.7 Chest X-Ray 09/06/16 07:56 IMPRESSION: 1. Cardiomegaly with vascular congestion. 2. Right pleural effusion with associated atelectasis and/or infiltrate. D/ : / 09/06/2016 09:19:52 Zackary López MD / Monica Barraza Interpreting Provider: Zackary López MD - Imaging and Cardiology Chest Xray: report reviewed - EKG Interpretation EKG results cardiology: personally reviewed, other (24 hour telemetry review shows SR, PAC. Avg HR 81 bpm. There was one minute of atrial fibrillation seen with HR up to 140 bpm. Currently NSR.) Consult Discharge Plan - Plan Referrals: NO,PCP [Primary Care Provider] -
--- NOTE | 2016-09-06 14:33 | Discharge Summary ---
Date of Encounter: 09/06/16 Time of Encounter: 14:31 - Discharge Diagnosis (1) Pleural effusion Priority: Primary Status: Acute (2) Acute respiratory distress Priority: Primary Status: Acute (3) Cardiomyopathy Priority: Primary Status: Chronic Qualifiers: Cardiomyopathy type: unspecified Qualified Code(s): I42.9 - Cardiomyopathy , unspecified (4) Elevated troponin Priority: Primary Status: Acute (5) S/P aortic valve replacement Priority: Secondary Status: Chronic (6) Systolic CHF Priority: Primary Status: Acute Qualifiers: Congestive heart failure chronicity: acute on chronic Qualified Code(s): I50.23 - Acute on chronic systolic (congestive) heart failure (7) Coronary artery disease Priority: Secondary Status: Chronic Qualifiers: Coronary Disease-Associated Artery/Lesion type: bypass graft [place] vs. transplanted heart: [place] heart Associated angina: without angina Qualified Code(s): I25.810 - Atherosclerosis of coronary artery bypass graft(s) without angina pectoris (8) End stage renal disease on dialysis Priority: Primary Status: Chronic (9) Pulmonary nodules Priority: Secondary Status: Chronic - Discharge Medications Prescriptions: Lisinopril [Zestril] 20 mg PO DAILY #30 tablet Home Medications: Aspirin 81 mg PO DAILY 04/12/15 [History] Insulin LISPRO [HumaLOG] 5 - 10 units SQ TID 04/12/15 [History] Insulin Glargine,Hum.rec.anlog [Lantus Solostar] 20 unit SQ HS #0 07/13/16 [Rx] Albuterol Sulfate [Ventolin Hfa] 2 puff IH Q6H PRN 07/17/16 [History] Oxygen 3 l .ROUTE DAILY 07/17/16 [History] Ergocalciferol (VITAMIN D2) [Drisdol (50,000 Unit)] 50,000 unit PO QWEEK [History] Benzonatate [Tessalon] 200 mg PO TID PRN 08/05/16 [History] Atorvastatin [Lipitor] 40 mg PO HS 09/05/16 [History] Carvedilol [Coreg] 12.5 mg PO BIDWM 09/05/16 [History] HYDROcodone/Acet 5/325 mg [[place] 5-325 mg] 1 tab PO Q6H PRN 09/05/16 [History] Vitamin B Complex [B Complex] 1 tab PO DAILY 09/05/16 [History] Lisinopril [Zestril] 20 mg PO DAILY #30 tablet 09/06/16 [Rx] Penicillin G Sodium 6,000,000 unit IV Q12H #0 09/06/16 [Rx] Allergies/Adverse Reactions: Allergies No Known Allergies Allergy (Verified 07/17/16 10:10) Procedures/tests Complete & Pending: Procedures Performed prior 72 hours Category Date Time Status US thoracentesis [US] Routine Exams 09/06/16 09:30 Ordered IR thoracentesis ultrasound [IR] Routine IR 09/06/16 Completed Date of admission: 09/05/16 14:09 Primary care physician: PCP NO Consults: 09/05/16 14:59 Consult to Financing Analyst [CONS] Routine Reason for SW Consult: Patient is 100% chairity. 09/05/16 16:30 Consult to Dialysis [CONS] ONCE Consult to Nephrology [CONS] Routine Consulting Provider: [facility] Reason for Consult: ESRD on dialysis Call Completed: Yes 09/06/16 09:30 Consult to Interventional Radiology [CONS] Routine Consulting Provider: Radiology Interventional Cols Reason for Consult: Right pleural effusion Call Completed: Yes - Patient Status Disposition: Home Health Service Condition: Fair Functional capacity at discharge: independent ambulation Overall status at discharge: patient is progressing back to baseline - Discharge Instructions Follow Up With: Brian Livingston, [employer] [Advanced Practice Nurse] - 09/26/16 3:30 pm Tr Malloy DO [Resident] - NO,PCP [Primary Care Provider] - Charlotte Zapien DO [Resident] - 09/14/16 10:45 am (This appointment is at [facility]) - Diet and Activity Activity: as per the cardiac rehab, increase activity as tolerated Diet: low fat, low cholesterol, low salt diet - Hospital Course Hospital course: Mr. Sandhu is a 56 year old male with PMH signficant for CAD s/p 4v CABG ( ), HTN, ESRD on dialysis, obesity, DMII, combined systolic and diastolic CHF, recent S. bovis bacteremia and subsequent aortic valve endocarditis--this was discovered 07/2016 and he was transferred to [facility] to [facility] for surgical intervention. He had a redo sternotomy and AVR with 25mm [place]o Trifecta valve and aortic valve augmentation with bovine pericardium. He presented with increased dyspnea. BNP found to be >5000. CXR revealed right basilar pleural effusion and atelectasis or airspace disease. Interstitial opacities likely pulmonary edema. Preliminary blood cultures were negative 2. Troponin 0.04. BP 180/118 on presentation--reports increasing blood pressure since valve replacement--has been running 150s/100s at home. He underwent urgent dialysis with fluid removal. Repeat chest X-ray showed persistent pleural effusion. Today he received a thoracentesis and 1300 ml was removed and sent to cytology. Follow-up chest x-ray showed decreased right pleural effusion. His symptoms have significantly improved and he is now ready to be discharged home. His lisinopril was increased to 20 mg daily and his blood pressure improved. He will continue his IV penicillin as ordered. He has a follow-up this with infectious disease at [facility]. He is on dialysis Monday , Monday, Monday. He will proceed with dialysis tomorrow an outpatient clinic. Records reviewed from [facility]. Most recent echo 08/18/16 EF 26%--global hypokinesis with severe global systolic dysfunction. RV mildly enlarged with moderately reduced systolic function. Moderate biatrial enlargement. #[address] Rodrigo bioprosthetic valve implanted 08/10 with peak and MG of 14.5 mmHg and 8 mmHg. DI 0.45 with estimated ROBI 1.56cm2, mild-moderate MR, traice-mild TR. Recommend repeat TTE in 3 months to reevaluate EF. CHF education reviewed with patient and and they voiced understanding. He' ll continue low-sodium diet and daily weights. Follow up [facility] in 1 to 2 weeks. - Time Spent with Patient Total time spent providing and/or coordinating discharge services: Physical Examination Vital Signs, Last 4 Hours Pulse 09/06/16 13:03 84 SPO2 97% on room air. General: Conversant, No Apparent Distress HEENT: Atraumatic, Normocephaly, Mucus Membranes Moist Neck: No JVD, Normal carotid pulses Cardiac: Reg Rate and Rhythm, Normal S1 and S2, No Murmur Lungs: Normal Breath Sounds, No Wheeze, Rales, Rhonchi, Other (Band-Aids intact on right lower back.) Neuro: Alert and responsive, No focal deficits noted Abdomen: Soft, Non-Tender Skin: No rashes noted on visualized skin Musculoskeletal: No Chest Wall Tenderness Extremities: No Clubbing, No Cyanosis, No Edema, Normal Pulses
--- NOTE | 2016-09-06 14:50 | Physician Discharge Referral ---
Home Health/Hosp Referral Info Transfer to: Home Health Provider in Charge Post Discharge: PCP - Diagnosis (1) Pleural effusion Status: Acute (2) Acute respiratory distress Status: Acute (3) Cardiomyopathy Status: Acute (4) Elevated troponin Status: Acute (5) S/P aortic valve replacement Status: Acute (6) Systolic CHF Status: Acute (7) Coronary artery disease Status: Chronic (8) End stage renal disease on dialysis Status: Chronic (9) Pulmonary nodules Status: Acute - Respiratory Orders Oxygen / L per min (2L PRN hypoxemia as previously ordered) Smoking Cessation: Smoking cessation has been advised. For more information, call the [place] Tobacco Quit Line at 2-838-JLSJ-NOW. - Diet/Nutrition Diet/Nutrition Orders: No Added Salt (LIEN), Cardiac - Activity Activity Orders: Up ad abdelrahman - Services Needed Following services are medically necessary services: Nursing (IV antibiotics) - Transfer Medications Prescriptions: Lisinopril [Zestril] 20 mg PO DAILY #30 tablet Home Medications: Aspirin 81 mg PO DAILY 04/12/15 [History] Insulin LISPRO [HumaLOG] 5 - 10 units SQ TID 04/12/15 [History] Insulin Glargine,Hum.rec.anlog [Lantus Solostar] 20 unit SQ HS #0 07/13/16 [Rx] Albuterol Sulfate [Ventolin Hfa] 2 puff IH Q6H PRN 07/17/16 [History] Oxygen 3 l .ROUTE DAILY 07/17/16 [History] Ergocalciferol (VITAMIN D2) [Drisdol (50,000 Unit)] 50,000 unit PO QWEEK [History] Benzonatate [Tessalon] 200 mg PO TID PRN 08/05/16 [History] Atorvastatin [Lipitor] 40 mg PO HS 09/05/16 [History] Carvedilol [Coreg] 12.5 mg PO BIDWM 09/05/16 [History] HYDROcodone/Acet 5/325 mg [[place] 5-325 mg] 1 tab PO Q6H PRN 09/05/16 [History] Vitamin B Complex [B Complex] 1 tab PO DAILY 09/05/16 [History] Lisinopril [Zestril] 20 mg PO DAILY #30 tablet 09/06/16 [Rx] Penicillin G Sodium 6,000,000 unit IV Q12H #0 09/06/16 [Rx] Allergies/Adverse Reactions: Allergies No Known Allergies Allergy (Verified 07/17/16 10:10) Certification: Further, I certify that my clinical findings support that this patient is homebound (i.e. absences from home require considerable and taxing effort and are for medical reasons or tenriism services or infrequently or short duration when for other reasons) because: Pt requires home IV antibiotic infusions. Homebound Reason: Patient requires assistance of a person or device to safely leave home Attestation: My signature below is to certify that this patient is under my care and that I, or nurse practitioner, or a physician's assistant vice president working with me, has a face-to -face encounter with this patient.
[2016-09-06 15:03] LABS: RBC,Pleural Fluid 0.011 M/mcL
[2016-09-06 15:04] LABS: Appearance of Pleural Fl Hazy (Clear)
--- NOTE | 2016-09-06 17:10 | Electrocardiograph Report ---
[facility] Test Date: 2016-09-05 Pat Name: Deepika Sandhu Department: 104 Room: 2N08 Gender: M Necktie Maker: DORIS : 1960 Requested By: Willie Myers Order Number: [id number] Reading MD: Isabel Dawson Measurements Intervals [place] Rate: 100 P: 62 ND: 157 QRS: 99 QRSD: 151 T: 28 QT: 404 QTc: 461 Interpretive Statements SINUS TACHYCARDIA RIGHT BUNDLE BRANCH BLOCK Electronically Signed On 09-06-16 17:09:54 EST by Isabel Dawson
--- NOTE | 2016-09-06 18:03 | Nephrology Progress Note ---
Date of Encounter: 09/06/16 Time of Encounter: 10:45 - Assessment and Plan (1) End stage renal disease on dialysis Current Visit: Yes Status: Chronic Next HD would be planned for tomorrow. Okay to discharge from a nephrology perspective. Tomorrow I will plan to notify [facility], that his weights have decreased and will reset his dry weight/target weight down to about 102- 103 kg (which was measured before the thoracentesis, in which about 1500 cc were removed. Continue his home antihypertensive and bone-mineral meds. Renal diet. Thank you. (2) Fluid overload Current Visit: Yes Status: Acute Much improved after HD yesterda and the thoracentesis today. Qualifiers: Hypervolemia type: other Qualified Code(s): E87.79 - Other fluid overload (3) S/P aortic valve replacement Current Visit: Yes Status: Chronic (4) Hypertension, uncontrolled Current Visit: Yes Status: Chronic Improved after HD yesterday. Subjective Principal diagnosis: 09/06/16 Interval history: pt was s/e earlier this morning. He reported that he was feeling much better after the thoracentesis. He did not affirm N/V/D or dysuria and no uremic symptoms. I saw his and also updated her. Objective - Vital Signs Vital signs: Vital Signs Temp Pulse Resp BP Pulse Ox 09/06/16 13:03 84 09/06/16 10:02 81 94 L 09/06/16 07:43 97.9 F 84 10 137/89 97 09/06/16 07:40 97.9 F 84 10 137/89 97 09/06/16 04:50 97.6 F 62 17 122/81 97 09/06/16 01:11 98.5 F 87 22 135/86 97 09/05/16 22:18 98.2 F 82 26 135/90 100 09/05/16 22:15 31 135/90 97 09/05/16 22:05 20 100 09/05/16 21:40 97.4 F L 24 134/49 09/05/16 21:30 119/71 09/05/16 21:15 125/65 09/05/16 21:00 120/61 09/05/16 20:45 129/73 09/05/16 20:30 123/68 01/16/17 20:15 125/54 09/05/16 20:00 120/70 09/05/16 19:45 126/64 09/05/16 19:30 139/83 09/05/16 19:15 143/54 09/05/16 19:00 158/98 09/05/16 18:45 163/107 09/05/16 18:30 178/104 09/05/16 18:15 191/124 09/05/16 18:00 160/100 Intake and Output 09/06/16 09/06/16 09/06/16 07:59 15:59 23:59 Intake Total 800 / 800 812 / 812 Output Total 0 / 0 Balance 800 / 800 812 / 812 Intake: IV Fluids 200 / 200 100 / 100 Ampicillin 2 GM In 0.9 % 200 / 200 100 / 100 Sodium Chloride (Mini-Bag +) 100 ML @ 200 mls/hr IVPB Q4HR DENNIS Rx#: [id number] Oral 600 / 600 712 / 712 Output: Urine 0 / 0 Other: Meal Lunch Percent of Meal Consumed 100% Weight 103.2 kg Blood Glucose* 83 161 Patient Weight 09/06/16 23:59 Weight 103.2 kg - General Appearance General appearance: Present: well-developed, appears started age, chronically ill, frail EENT: Present: ATNC, PERRL, mucous membranes moist Neck: Present: supple Respiratory: Present: clear Cardiology: Present: no edema (trace to 1+ ankle edema), normal S1, normal S2 Dialysis Vascular Access: Venous Catheter (Right Tunneled dialysis catheter, was C/D/I) Gastrointestinal: Present: normoactive bowel sounds, no guarding Integumentary: Present: no rash, warm and dry Neurologic: Present: no focal deficit, no asterixis, alert and oriented x3 Musculoskeletal: Present: no deformities, no clubbing Psychiatric: Present: mood/affect appropriate, cooperative - Lab 09/06/16 04:50 09/06/16 04:50 Most recent lab results Calcium 8.6 mg/dL (8.6-10.8) 09/06/16 04:50 Phosphorus 3.9 mg/dL (2.3-4.7) 09/06/16 04:50 Magnesium 1.7 mg/dL (1.6-2.6) 09/06/16 04:50 Consult Discharge Plan - Plan Instructions: Lisinopril (By mouth), Heart Failure (DC), Chronic Obstructive Pulmonary Disease (DC) Referrals: Brian Livingston, TOMI [Advanced Practice Nurse] - 09/26/16 3:30 pm Tr Malloy DO [Resident] - NO,PCP [Primary Care Provider] - Charlotte Zapien DO [Resident] - 09/14/16 10:45 am (This appointment is at the [facility]) Prescriptions: Lisinopril [Zestril] 20 mg PO DAILY #30 tablet
--- NOTE | 2016-09-06 18:33 | Electrocardiograph Report ---
[facility] Test Date: 2016-09-05 Pat Name: Deepika Sandhu Department: 104 Room: 2N08 Gender: M Law Tutor: DORIS : 1960 Requested By: Edgar Sebastian Order Number: [id number] Reading MD: Isabel Dawson Measurements Intervals [place] Rate: 58 P: 69 MS: 159 QRS: 65 QRSD: 146 T: 138 QT: 523 QTc: 520 Interpretive Statements SINUS BRADYCARDIA WITH OCCASIONAL VENTRICULAR PREMATURE COMPLEXES WITH OCCASIONAL SUPRAVENTRICULAR PREMATURE COMPLEXES INDETERMINATE AXIS RIGHT BUNDLE BRANCH BLOCK MODERATE T-WAVE ABNORMALITY, CONSIDER LATERAL ISCHEMIA Electronically Signed On 09-06-16 18:32:32 EST by Isabel Dawson
== END 2016-09-06 16:45 | disposition home health service (06) | DRG 291 ==
LOC: EMEROO 10:49 → 2NNU 10:49 → OBSVTOIN 14:09 → 2NNU 15:45
PROVIDERS: ADMIT Internal Medicine; ATTEND Internal Medicine

== ENCOUNTER 2017-06-12 00:44 | Inpatient (IN) ==
[2017-06-12] MEDS ORDERED: Ipratropium/Albuterol Neb 3 ML IH ONE (00:48)
--- NOTE | 2017-06-12 00:50 | Emergency Department Note ---
Disposition Clinical Impression: Hypoxia, Elevated troponin Fluid overload Qualifiers: Hypervolemia type: unspecified Qualified Code(s): E87.70 - Fluid overload, unspecified Respiratory failure Qualifiers: Chronicity: acute Respiratory failure complication: hypoxia Qualified Code(s): J96.01 - Acute respiratory failure with hypoxia Pulmonary edema Qualifiers: Chronicity: acute Qualified Code(s): J81.0 - Acute pulmonary edema Dyspnea Qualifiers: Dyspnea type: unspecified Qualified Code(s): R06.00 - Dyspnea, unspecified Disposition: Admitted As Inpatient Condition: Fair Time of Disposition: 03:15 SOB HPI - General Chief Complaint: ED Shortness of Breath/Dyspnea Stated Complaint: RITA Time Seen by Provider: 06/12/17 00:47 Source: patient, EMS Mode of arrival: EMS Limitations: no limitations Nursing Notes Reviewed: Yes Vital Signs Reviewed: Yes - History of Present Illness Patient is a 56-year-old male with past medical history of CHF, renal disease, dialysis dependent with dialysis on Monday, Monday, Monday and follows with Dr. Green, quadruple bypass, valve replacement. He presents today due to shortness of breath. states that the patient was fine throughout the day and then started developing shortness of breath around 11 PM. Denies any chest pain, fevers, abdominal pain, vomiting, diarrhea. He was brought in via EMS who state that the patient was found to be 75% on room air upon arrival. The place him on 5 L nasal cannula and he was still not saturating well. They placed him on CPAP and he was tolerating this better. He was significantly labored upon arrival and immediately switched to BiPAP once here. - Related Data Home Medications Medication Instructions Recorded Confirmed Aspirin 81 mg PO DAILY 04/12/15 09/29/16 Albuterol Sulfate [Ventolin Hfa] 2 puff IH Q6H PRN 07/17/16 09/29/16 Oxygen 3 l .ROUTE DAILY 07/17/16 09/29/16 Ergocalciferol (VITAMIN D2) 50,000 unit PO QWEEK 07/18/16 09/29/16 [Drisdol (50,000 Unit)] Atorvastatin [Lipitor] 40 mg PO HS 09/05/16 09/29/16 Carvedilol [Coreg] 12.5 mg PO BIDWM 09/05/16 09/29/16 HYDROcodone/Acet 5/325 mg [[place] 1 tab PO Q6H PRN 09/05/16 09/29/16 5-325 mg] Vitamin B Complex [B Complex] 1 tab PO DAILY 09/05/16 09/29/16 Folic Acid 1 mg PO DAILY 09/29/16 09/29/16 Insulin LISPRO [Humalog] 1 unit SQ TID 09/29/16 09/29/16 Lisinopril [Zestril] 10 mg PO BID 09/29/16 09/29/16 Previous Rx's Medication Instructions Recorded Insulin Glargine,Hum.rec.anlog 20 unit SQ HS #0 07/13/16 [Lantus Solostar] Allergies Allergy/AdvReac Type Severity Reaction Status Date / Time No Known Allergies Allergy Verified 07/17/16 10:10 All systems ED: reviewed and negative except as stated. Constitutional: Denies: fever Cardiovascular: Denies: chest pain Respiratory: Reports: dyspnea Gastrointestinal: Denies: abdominal pain, nausea, vomiting, diarrhea Neurological: Denies: weakness, numbness, paresthesias Past Medical History - Past Medical History Attestation: Yes The following information was validated with the patient. Source: patient Medical history: Reports: CHF, coronary artery disease, diabetes, dialysis, hyperlipidemia, hypertension, myocardial infarction, osteoporosis, renal disease , valvular heart disease Surgical history: Reports: coronary bypass (CABG) Psychiatric history: Reports: no psych history - Social History Smoking Status: Heavy tobacco smoker Smokeless Tobacco Status: No Alcohol use: Reports: none Drug use: Reports: none Physical Exam - General Limitations: no limitations General appearance: alert, in no apparent distress - Head Head exam: atraumatic, normocephalic, normal inspection - Eye Eye exam: Present: normal appearance, PERRL, EOMI - ENT ENT exam: normal exam, normal oropharynx, mucous membranes moist - Neck Neck exam: Present: normal inspection, full ROM, trachea midline - Chest Chest inspection: Present: normal inspection, symmetric chest wall rise - Respiratory Respiratory exam: Present: wheezes (Wheezes and crackles throughout all lung ramirez), accessory muscle use, other (Significant accessory muscle use, very labored breathing, tripoding, currently placed on BiPAP) - Cardiovascular Cardiovascular exam: Present: normal rhythm, tachycardia, normal heart sounds - Abdominal Exam Abdominal exam: Present: soft, Non-Tender. Absent: tenderness, distention, guarding, rebound, rigidity - Extremities Exam Extremities exam: Present: normal inspection, full ROM, pedal edema (Mild bilateral LE). Absent: tenderness - Neurological Exam Neurological exam: Present: alert, oriented X3 - Psychiatric Psychiatric exam: Present: normal affect, anxious - Skin Skin exam: Present: warm, dry, intact, normal color Course Course Narrative: Patient was tachycardic and hypertensive on presentation. He was on CPAP on arrival. Patient was switched to BiPAP. Upon arrival, patient was in respiratory distress, tripoding, using accessory muscles, lung exam shows wheezes and crackles throughout. No complaint of chest pain at this time. Patient states that he does still make urine and uses Lasix occasionally for increase fluid. EKG shows normal sinus tach with mild depression in V5, V6. Potassium 4.6. Troponin elevated at 0.05, significantly lower than most previous baseline elevations. No active chest pain. Chest x-ray shows increased interstitial edema when compared to prior exams. Patient is currently tolerating BiPAP well while on 50% FiO2. No longer having tripoding and accessory muscle use. I gave the patient 40mg IV lasix. I spoke with Dr. Mejía for admission to hospital for fluid overload. He requested that I speak with grinder set up operator universal prior to admission. 02:[address] Green, grinder set up operator universal. He requested additional 40mg IV lasix which was given. He will be consult for the patient and will move his dialysis earlier than scheduled time at 10am. Dr. Mejía repaged, accepted to ICU for further care and monitoring. Chest X-Ray 06/12/17 00:47 IMPRESSION: Mild diffuse increased interstitial lung markings, slightly increased compared to prior. Findings may represent developing mild edema or pneumonia superimposed on chronic interstitial disease. D/ / Stefany Angel MD / Stefany Angel MD Interpreting Provider: Stefany Angel MD Vital Signs Temperature 98.1 F 06/12/17 00:45 Pulse Rate 109 06/12/17 00:45 Respiratory Rate 30 06/12/17 00:45 Blood Pressure 185/92 06/12/17 00:45 O2 Sat by Pulse Oximetry 98 06/12/17 00:45 Temperature 98.1 F 06/12/17 00:45 Pulse Rate 81 06/12/17 02:10 Respiratory Rate 26 06/12/17 03:00 Blood Pressure 160/99 06/12/17 03:00 O2 Sat by Pulse Oximetry 98 06/12/17 03:00 Oxygen Delivery Oxygen Delivery Bipap Shortness of Breath/Dyspnea - [facility] Narrative Medical decision making narrative: EKG shows normal sinus tach with mild depression in V5, V6. Potassium 4.6. Troponin elevated at 0.05, significantly lower than most previous baseline elevations. No active chest pain. Chest x-ray shows increased interstitial edema when compared to prior exams. Patient is currently tolerating BiPAP well while on 50% FiO2. No longer having tripoding and accessory muscle use. I gave the patient 40mg IV lasix. I spoke with Dr. Mejía for admission to hospital for fluid overload. He requested that I speak with grinder set up operator [employer] prior to admission. 02:[address] Green, grinder set up operator universal. He requested additional 40mg IV lasix which was given. He will be consult for the patient and will move his dialysis earlier than scheduled time at 10am. Dr. Mejía repaged, accepted to ICU for further care and monitoring. - Medical Records Medical records reviewed: Yes I reviewed the patient's medical records. - Lab Data Lab results reviewed: Yes I reviewed the patient's lab results. Result diagrams: 06/12/17 01:12 06/12/17 01:12 Lab Results 06/12/17 06/12/17 06/12/17 Range/Units 01:12 01:12 01:12 WBC 11.9 H (4.3-11.1) K/mcL RBC 3.77 L (4.19-5.50) M/mcL Hgb 11.6 L (12.9-16.9) g/dL Hct 35.3 L (37.5-50.1) % MCV 93.6 (83.0-100.0) fL MCH 30.8 (28.0-33.3) pg MCHC 32.9 (31.6-35.5) g/dL RDW 14.0 (11.5-14.5) % Plt Count 173 (140-400) K/mcL MPV 10.5 (9.4-12.4) fL Immature Gran % 0.6 (0-4) % Seg Neutrophils % 80.3 % Lymphocytes % 12.5 % Monocytes % 4.8 % Eosinophils % 1.2 % Basophils % 0.6 % Neutrophils # 9.6 H (1.6-8.9) K/mcL Lymphocytes # 1.5 (0.6-4.6) K/mcL Monocytes # 0.6 (0.0-1.3) K/mcL Eosinophils # 0.1 (0.0-0.6) K/mcL Basophils # 0.1 (0.0-0.2) K/mcL Immature Plt Fraction 4.0 (1.1-6.1) % Sodium 138 (136-145) mEq/L Potassium 4.6 H (3.5-4.5) mEq/L Chloride 100 (98-109) mEq/L Carbon Dioxide 24 (19-29) mEq/L BUN 65 H (8-26) mg/dL Creatinine 6.55 H (0.72-1.25) mg/dL Est GFR ( Amer) 11 L (> 60) Est GFR (Non-Af Amer) 9 L (> 60) BUN/Creatinine Ratio 10 (6-26) Glucose 307 H (70-99) mg/dL Calculated Osmolality 316 H (280-300) Lactic Acid 0.7 (0.5-2.2) mmol/L Calcium 7.8 L (8.6-10.8) mg/dL Troponin I (0-0.03) ng/mL B-Natriuretic Peptide (0-100) pg/mL 06/12/17 06/12/17 Range/Units 01:12 01:12 WBC (4.3-11.1) K/mcL RBC (4.19-5.50) M/mcL Hgb (12.9-16.9) g/dL Hct (37.5-50.1) % MCV (83.0-100.0) fL MCH (28.0-33.3) pg MCHC (31.6-35.5) g/dL RDW (11.5-14.5) % Plt Count (140-400) K/mcL MPV (9.4-12.4) fL Immature Gran % (0-4) % Seg Neutrophils % % Lymphocytes % % Monocytes % % Eosinophils % % Basophils % % Neutrophils # (1.6-8.9) K/mcL Lymphocytes # (0.6-4.6) K/mcL Monocytes # (0.0-1.3) K/mcL Eosinophils # (0.0-0.6) K/mcL Basophils # (0.0-0.2) K/mcL Immature Plt Fraction (1.1-6.1) % Sodium (136-145) mEq/L Potassium (3.5-4.5) mEq/L Chloride (98-109) mEq/L Carbon Dioxide (19-29) mEq/L BUN (8-26) mg/dL Creatinine (0.72-1.25) mg/dL Est GFR ( Amer) (> 60) Est GFR (Non-Af Amer) (> 60) BUN/Creatinine Ratio (6-26) Glucose (70-99) mg/dL Calculated Osmolality (280-300) Lactic Acid (0.5-2.2) mmol/L Calcium (8.6-10.8) mg/dL Troponin I 0.05 H* (0-0.03) ng/mL B-Natriuretic Peptide 2313 H (0-100) pg/mL - Radiology Data Radiology results reviewed: Yes I reviewed the patient's radiology results. Chest X-Ray 06/12/17 00:47 IMPRESSION: Mild diffuse increased interstitial lung markings, slightly increased compared to prior. Findings may represent developing mild edema or pneumonia superimposed on chronic interstitial disease. D/ / Stefany Angel MD / Stefany Angel MD Interpreting Provider: Stefany Angel MD - EKG Data EKG attestation: Yes I reviewed and interpreted this EKG. EKG results narrative: Jun 12 at 00:50. Sinus tachycardia. Rate 107. AL 156. QRS 114. QTC 434. Normal axis. Mild ST depression in V5, V6
--- NOTE | 2017-06-12 00:51 | Emergency Department Note ---
START Narrative - START START: I examined this patient and my medical decision-making was reviewed with the emergency medicine resident. I agree with the documented findings, disposition and treatment plan as described except to the extent set forth below. Patient seen with emergency medicine resident Dr. Ra Elkins, Please see a copy of his note for details of the H&P, ED evaluation, management and disposition. I have independently evaluated the patient and confirmed appropriate portions of the history and physical exam. Briefly: A 56-year-old male end-stage renal disease, gets dialyzed 3 times a week. He should not put in by EMS on BiPAP for respiratory difficulty. He has had wheezing and crackles bibasilarly. Denies chest pain at this time. Patient most likely is fluid overload secondary to ESRD. Providing 40 minutes critical care service for this patient, with admission anticipated. Screening labs oxygen supplementation and do her nebs are being instituted. Disposition pending.
[2017-06-12 01:19] LABS: Basophils # 0.1 K/mcL (0.0-0.2); Basophils % 0.6 %; Eosinophils # 0.1 K/mcL (0.0-0.6); Eosinophils % 1.2 %; Hematocrit 35.3 % (37.5-50.1); Hemoglobin 11.6 g/dL (12.9-16.9); Immature Granulocytes % 0.6 % (0-4); Lymphocytes # 1.5 K/mcL (0.6-4.6); Lymphocytes % 12.5 %; Mean Corpuscular HGB Conc 32.9 g/dL (31.6-35.5); Mean Corpuscular Hemoglobin 30.8 pg (28.0-33.3); Mean Corpuscular Volume 93.6 fL (83.0-100.0); Mean Platelet Volume 10.5 fL (9.4-12.4); Monocytes # 0.6 K/mcL (0.0-1.3); Monocytes % 4.8 %; Neutrophils # 9.6 K/mcL (1.6-8.9); Platelet Count 173 K/mcL (140-400); Red Blood Count 3.77 M/mcL (4.19-5.50); Segmented Neutrophils % 80.3 %
[2017-06-12 01:31] LABS: Calcium 7.8 mg/dL (8.6-10.8); Potassium 4.6 mEq/L (3.5-4.5)
[2017-06-12] MEDS ORDERED: Furosemide 40 MG/4 ML VIAL IVP ONE ×2 (01:57→02:09)
[2017-06-12] MEDS ORDERED: Aspirin 325 MG TABLET PO ONE (01:57)
--- NOTE | 2017-06-12 02:45 | Internal Med History&Physical ---
<Gareth Morgan - Last Filed: 06/12/17 03:14> Date of Encounter: 06/12/17 Time of Encounter: 02:44 Assessment and Plan (1) Acute on chronic respiratory failure with hypoxia and hypercapnia Current visit: Yes Status: Acute EMS reported SpO2 75% on room air upon arrival. They placed him on 5 L nasal cannula without relief and later on CPAP with some improvement. In the ED, patient had labored breathing with respiratory distress, using accessory muscles and tripoding. He was immediately switched to BiPAP. Continue Bipap, Duonebs Continue diuresis and anticiapte HD today Patient requests code status to be DNR/DNI. new client banking services clerk consulted (2) End stage renal disease on dialysis Current visit: No Status: Chronic HD MWF Resume HD today Nephrology, Dr. Church consulted (3) Acute systolic CHF (congestive heart failure) Current visit: Yes Status: Acute BNP 2313 Echo 01/17/17 revealed LVEF 40% with global LV systolic dysfunction and mildly dilated LV size GIven Lasix 80mg in ED Anticipate HD today (4) Elevated troponin Current visit: Yes Status: Acute Initial troponin 0.05 Likely related to CHF and ESRD Trend serial troponins (5) CAD (coronary artery disease) Current visit: No Status: Acute H/o Cardiac arrest x6 Qualifiers: Coronary Disease-Associated Artery/Lesion type: unspecified vessel or lesion type [place] vs. transplanted heart: [place] heart Associated angina: without angina Qualified Code(s): I25.10 - Atherosclerotic heart disease of [place] coronary artery without angina pectoris (6) Hypertension Current visit: No Status: Chronic Resume home meds Qualifiers: Hypertension type: essential hypertension Qualified Code(s): I10 - Essential (primary) hypertension (7) S/P aortic valve replacement Current visit: No Status: Chronic Continue to monitor (8) Insulin dependent diabetes mellitus Current visit: Yes Status: Chronic Continue insulin and accuchecks (9) Obesity (BMI 30-39.9) Current visit: No Status: Chronic Diet and lifestyle modification (10) Tobacco dependence Current visit: Yes Status: Chronic Recommend tobacco cessation Patient declined need for nicotine patch (11) DVT prophylaxis Current visit: No Status: Acute Heparin subq TID Internal Medicine - H&P: HPI Chief complaint: SOB Admitted From: Home Plans for Post Hospital Care: Home History of present illness: Mr. Sandhu is a 56 year old male with a PMH of ESRD on HD every MWF, COPD with home oxygen use prn, CHF, DM, CAD, and aortic valve replacement that presented due to shortness of breath since 11 PM last night. Patient was outside mowing the lawn yesterday before onset of symptoms. He reports last dialysis treatment Monday and is due for dialysis today. He denied fevers, chills, chest pain, abdominal pain, vomiting, diarrhea, dysuria, or leg edema. EMS reported SpO2 75 % on room air upon arrival. They placed him on 5 L nasal cannula without relief and later on CPAP with some improvement. In the ED, patient had labored breathing with respiratory distress, using accessory muscles and tripoding. He was immediately switched to BiPAP. BNP level was 2313. Case discussed with field interviewer, Dr. Green and patient placed in ICU on Bipap. Of note, patient is of sound mind, A&Ox3, and requests code status to be DNR/DNI. Family is at bedside. Past Med Surg Social Fam HX - Past Medical History Medical history: CHF, coronary artery disease, diabetes, dialysis, hyperlipidemia, hypertension, myocardial infarction, osteoporosis, renal disease , valvular heart disease Psychiatric history: no psych history - Past Surgical History Surgical History: coronary bypass (CABG) - Social History Smoking Status: Current some day smoker Smokeless Tobacco Status: No Alcohol use: none Drug use: none Current living situation: Home, With Family Activity Level: Independent ambulation - Family History Father Family Member Ethnicity: Non- Living Status: Hx Family Cardiac Disorders: Yes (mother) Hx Family Respiratory Disorders: Yes (father) Hx Family Cancer: Yes (father) Hx Family GI Disorders: No Hx Family Endocrine Disorder: Yes (self) Hx Family Neuromuscular Disorders: No Hx Family Neurologic Disorders: No Hx Family HEENT Disorders: No Hx Family Autoimmune Disorders: No Internal Medicine - H&P: Meds Aspirin 81 mg PO DAILY 04/12/15 [History] Insulin Glargine,Hum.rec.anlog [Lantus Solostar] 20 unit SQ HS #0 07/13/16 [Rx] Albuterol Sulfate [Ventolin Hfa] 2 puff IH Q6H PRN 07/17/16 [History] Oxygen 3 l .ROUTE DAILY 07/17/16 [History] Ergocalciferol (VITAMIN D2) [Drisdol (50,000 Unit)] 50,000 unit PO QWEEK [History] Atorvastatin [Lipitor] 40 mg PO HS 09/05/16 [History] Carvedilol [Coreg] 12.5 mg PO BIDWM 09/05/16 [History] HYDROcodone/Acet 5/325 mg [[place] 5-325 mg] 1 tab PO Q6H PRN 09/05/16 [History] Vitamin B Complex [B Complex] 1 tab PO DAILY 09/05/16 [History] Folic Acid 1 mg PO DAILY 09/29/16 [History] Insulin LISPRO [Humalog] 1 unit SQ TID 09/29/16 [History] Lisinopril [Zestril] 10 mg PO BID 09/29/16 [History] 3 Allergy/AdvReac Type Severity Reaction Status Date / Time No Known Allergies Allergy Verified 07/17/16 10:10 All Systems PM: A 10-system review of systems was performed and is negative for pertinent findings except as documented above in the HPI. - Constitutional Constitutional: fatigue, no anorexia, no chills, no falls, no weight gain, no weight loss - EENT Eyes: no change in vision Nose, mouth and throat: no nasal congestion, no sinus pressure - Cardiovascular Cardiovascular ROS IM: dyspnea, dyspnea on exertion, no chest pain, no palpitations - Respiratory Respiratory: dyspnea, dyspnea on exertion, wheezing, no cough, no pain with cough - Gastrointestinal Gastrointestinal: no abdominal pain, no diarrhea, no hematemesis, no hematochezia, no nausea, no vomiting - Genitourinary Genitourinary ROS male: no dysuria, no hematuria, no urinary frequency, no urinary urgency - Musculoskeletal Musculoskeletal ROS IM: no back pain, no muscle weakness, no numbness, no tingling - Integumentary Integumentary IM: no erythema, no new lesions, no rash - Neurological Neurological ROS: no confusion, no numbness, no weakness - Psychiatric Psychiatric: anxiety, no depression - Endocrine Endocrine IM: no polydipsia, no polyphagia, no polyuria - Constitutional Vitals: Temp Pulse Resp BP Pulse Ox 98.1 F 81 20 141/95 100 06/12/17 00:45 06/12/17 02:10 06/12/17 02:10 06/12/17 02:10 06/12/17 02:10 General appearance: Present: cooperative, mild distress, A&O X 3, pleasant, obese, answers questions appropriately Exam: On BiPap - Head Head exam: Present: atraumatic, normal inspection, normocephalic - Eye Eye exam: Present: EOMI, PERRL - ENT ENT exam: Present: mucous membranes moist, normal oropharynx - Neck Neck exam general surgery: Present: normal inspection, supple. Absent: tenderness - Respiratory Respiratory exam: Present: accessory muscle use, decreased breath sounds, rales , respiratory distress, wheezes Additional comments: On Bipap - Cardiovascular Cardiovascular exam: Present: +S1, +S2, tachycardia - GI/Abdominal GI/Abdominal exam: Present: normal bowel sounds, soft. Absent: distended, guarding, tenderness - Additional comments: no hubbard - Extremities Exam Extremities exam: Present: normal capillary refill, warm, radial pulses palpable and symmetrical. Absent: pedal edema - Back Exam Back exam: Present: normal inspection. Absent: paraspinal tenderness, tenderness - Neurological Exam Neurological exam: Present: alert, oriented X3, no focal deficits, strengths equal and symetr throughout. Absent: altered, speech deficit - Psychiatric Psychiatric exam: Present: normal affect, normal mood - Skin Skin exam: Present: dry, normal color, warm Internal Med - H&P Results - Labs CBC & Chem 7: 06/12/17 01:12 06/12/17 01:12 - EKG Data -: EKG Interpreted by Myself EKG shows normal: sinus rhythm Rate: tachycardia (Sinus tachycardia. HR 107. RI 156. QRS 114. QTC 434. Normal axis. Mild ST depression in V5, V6) <Mahin Bae - Last Filed: 06/12/17 05:25> Date of Encounter: 06/12/17 Internal Medicine - H&P: HPI History of present illness: Mr. Sandhu is a 56 year old male All Systems PM: A 10-system review of systems was performed and is negative for pertinent findings except as documented above in the HPI. - Constitutional Vitals: Temp Pulse Resp BP Pulse Ox 96.2 F L 81 18 152/104 97 06/12/17 03:00 06/12/17 04:00 06/12/17 04:12 06/12/17 04:12 06/12/17 04:12 Internal Med - H&P Results - Labs CBC & Chem 7: 06/12/17 01:12 06/12/17 01:12 Labs: Cardiac Enzymes 06/12/17 Range/Units 04:01 Troponin I 0.06 H* (0-0.03) ng/mL - Attending Attestation I have seen and examined the patient independently. I have discussed with Resident Dr Morgan regarding the management plan. Agree with the documentation. Pt has SOB since this afternoon. CXR shows pulmonary edema, pt has elevated BNP. Hx of systolic CHF with ESRD on HD. PPt denies CP, EKG shows no significant ST-T change. Consider CHF exacerbation and fluid overload. Pt still makes urine. Lasix 40mg iv x 2 were given in ER. Pt is on BiPAP. Nephrology informed for HD in AM.
[2017-06-12] MEDS ORDERED: Naloxone 0.4 MG/ML INJ IVP PRN ×2 (03:43→16:12)
[2017-06-12] MEDS ORDERED: Ondansetron 4 MG/2 ML VIAL IVP PRN ×2 (03:43→16:12)
[2017-06-12] MEDS ORDERED: Acetaminophen 325 MG TABLET PO PRN ×2 (03:43→16:12)
[2017-06-12] MEDS ORDERED: *HR* HYDROcodone/Acet 5/325 mg TABLET PO PRN ×2 (03:52→16:12)
[2017-06-12] MEDS: Ipratropium/Albuterol Neb 3 ML IH SCH ×6 (04:12→23:16)
[2017-06-12 04:34] LABS: Phosphorous 5.7 mg/dL (2.3-4.7)
[2017-06-12] MEDS ORDERED: *HR* Dextrose 50 % in Water (Syg) 50 ML SYRINGE IVP PRN ×2 (05:29→16:12)
[2017-06-12] MEDS ORDERED: Dextrose Gel 15 GM PO PRN ×6 (05:29→16:12)
[2017-06-12] MEDS ORDERED: D5% in Water 1,000 ML IVC PRN ×2 (05:29→16:12)
[2017-06-12] MEDS: *HR* Heparin 5,000 UNIT/ML VIAL SQ SCH ×3 (05:38→21:37)
[2017-06-12] MEDS ORDERED: Famotidine 20 MG/2 ML VIAL IVP SCH (06:00)
--- NOTE | 2017-06-12 06:49 | Event Note ---
Date of Encounter: 06/12/17 Time of Encounter: 07:30 Nephrology Chart Review I logged into [facility] from off site and placed HD orders, but it could not be saved into [facility]. Will verbally call in HD orders. Plan is for HD today. His Target/Dry Weight is about 112 kg so his dyspnea may not entirely be just volume related. Nevertheless, I'll plan for HD today to challenge his dry weight be aiming to remove more and potentially plan for UF tomorrow for further fluid removal. I reviewed his [facility] HD run sheets and he is experiencing intradialytic hypotension which may be limiting his fluid removal as an outpatient. Further consult note and recommendations to follow. Thank you
[2017-06-12] MEDS: Insulin LISPRO 300 UNITS/3 ML VIAL SQ SCH ×3 (08:12→17:52)
[2017-06-12] MEDS ORDERED: 0.9 % Sodium Chloride 250 ML IVC PRN (08:37)
[2017-06-12] MEDS ORDERED: Albumin 25% 25gram/100mL 25 GM/100 ML IV.SOLN IVPB PRN (08:46)
[2017-06-12] MEDS ORDERED: 0.9 % Sodium Chloride 1,000 ML PRIME SCH (09:00)
[2017-06-12] MEDS ORDERED: Aspirin 81 MG TAB.CHEW PO SCH (09:00)
[2017-06-12] MEDS ORDERED: Folic Acid 1 MG TABLET PO SCH (09:00)
[2017-06-12] MEDS ORDERED: Vitamin B Complex/Vit C/Vit E 1 EACH TABLET PO SCH (09:00)
--- NOTE | 2017-06-12 09:23 | Nephrology Consult Note ---
Date of Encounter: 06/12/17 Time of Encounter: 09:13 Assessment and Plan (1) Acute exacerbation of CHF (congestive heart failure) Current Visit: No Status: Acute patient arrived with chief complaint of shortness of breath and had oxygen sats around 75%. CXR reviewed: cardiomegaly, increased interstitial lung markings, fluid overload Patient received total 80mg IV lasix and responded well with net negative 1L output since admission. BNP 2313 Etiology likely multifactorial in setting of end stage renal disease, CHF, non compliance with fluid restricted diet, possibly not removing enough fluid during dialysis secondary to intradialytic hypotension. Plan: patient counseled extensively on importance of lifestyle modifications. strict I/O fluid restricted diet will get dialysis today. will attempt to remove more fluid and give albumin to maintain blood pressure. Considering the addition of midodrine to avoid hypotensive episodes during dialysis. Qualifiers: Congestive heart failure type: systolic Qualified Code(s): I50.23 - Acute on chronic systolic (congestive) heart failure (2) Acute and chronic respiratory failure with hypoxia Current Visit: No Status: Acute plan as above (3) End stage renal disease on dialysis Current Visit: No Status: Chronic continue with scheduled dialysis sessions. patient counseled on lifestyle modifications and compliance with fluid restricted diet. (4) Elevated troponin I level Current Visit: Yes Status: Acute Etiology likely secondary to ESRD. patient has chronically elevated troponins. current troponin levels actually lower than baseline. patient is chest pain free. continue to monitor. (5) Coronary artery disease Current Visit: No Status: Chronic continue home meds Qualifiers: Coronary Disease-Associated Artery/Lesion type: bypass graft [place] vs. transplanted heart: [place] heart Associated angina: without angina Qualified Code(s): I25.810 - Atherosclerosis of coronary artery bypass graft(s) without angina pectoris (6) Obesity (BMI 30-39.9) Current Visit: No Status: Chronic lifestyle modifications encouraged. History of Present Illness - Reason for Consult Consult date: 06/12/17 end stage renal disease Requesting physician: Ra Chahal - Chief Complaint fluid overload, shortness of breath. - History of Present Illness Mr. Sandhu is a very pleasant 56 year old male with PMHx of ESRD- on dialysis MWF , CHF (last echo 01/17/17 showed LVEF 40%, global LV systolic dysfunction with regional variations, midly dilated LV size), DM, COPD (on 3L oxygen as needed), reported history of aortic valve replacement. Patient arrived to ED yesterday with chief complaint of shortness of breath. He has been compliant with his dialysis sessions and his last dialysis was Monday. He first noticed these symptoms while he was mowing the lawn yesterday. Patient still makes urine, and responded well to 80mg total IV lasix after admission. He is net negative 1L as reported on the chart. Patient states he has been non compliant with a fluid restricted diet at home. He was educated on lifestyle modifications. He denies nausea, vomiting, diarrhea, fever, chills, chest pain, shortness of breath, hematuria, melena, hematochezia, abdominal pain. he denies any further problems today and states that his shortness of breath has resolved. Past Med Surg Social Fam HX - Past Medical History Medical history: CHF, coronary artery disease, diabetes, dialysis, hyperlipidemia, hypertension, myocardial infarction, osteoporosis, renal disease , valvular heart disease Psychiatric history: no psych history - Past Surgical History Surgical History: coronary bypass (CABG) - Social History Smoking Status: Current some day smoker Smokeless Tobacco Status: No Alcohol use: none Drug use: none - Family History Father Family Member Ethnicity: Non- Living Status: Hx Family Cardiac Disorders: Yes (mother) Hx Family Respiratory Disorders: Yes (father) Hx Family Cancer: Yes (father) Hx Family GI Disorders: No Hx Family Endocrine Disorder: Yes (self) Hx Family Neuromuscular Disorders: No Hx Family Neurologic Disorders: No Hx Family HEENT Disorders: No Hx Family Autoimmune Disorders: No Medications and Allergies Aspirin 81 mg PO DAILY 04/12/15 [History] Insulin Glargine,Hum.rec.anlog [Lantus Solostar] 20 unit SQ HS #0 07/13/16 [Rx] Albuterol Sulfate [Ventolin Hfa] 2 puff IH Q6H PRN 07/17/16 [History] Oxygen 3 l .ROUTE DAILY 07/17/16 [History] Ergocalciferol (VITAMIN D2) [Drisdol (50,000 Unit)] 50,000 unit PO QWEEK [History] Carvedilol [Coreg] 12.5 mg PO BIDWM 09/05/16 [History] Vitamin B Complex [B Complex] 1 tab PO DAILY 09/05/16 [History] Folic Acid 1 mg PO DAILY 09/29/16 [History] Insulin LISPRO [Humalog] 1 unit SQ TID 09/29/16 [History] Calcium Acetate [Phos-LO] 667 mg PO TIDWM 06/12/17 [History] Lisinopril [Zestril] 20 mg PO BID 06/12/17 [History] 3 Allergy/AdvReac Type Severity Reaction Status Date / Time No Known Allergies Allergy Verified 07/17/16 10:10 Review of Systems All Systems: reviewed and no additional remarkable complaints except as stated Exam - Vital Signs Vital signs: Initial Vital Signs Temp Pulse Resp BP Pulse Ox 98.1 F 109 30 185/92 98 06/12/17 00:45 06/12/17 00:45 06/12/17 00:45 06/12/17 00:45 06/12/17 00:45 Vital Signs - Last 8 Hours Temp Pulse Resp BP Pulse Ox 06/12/17 08:38 97.7 F 06/12/17 07:32 19 141/98 99 06/12/17 07:00 81 06/12/17 06:00 82 28 161/99 100 06/12/17 05:30 98.3 F 79 21 158/99 97 06/12/17 04:12 18 152/104 97 06/12/17 04:00 81 16 152/104 97 06/12/17 03:30 81 06/12/17 03:00 96.2 F L 84 26 160/99 98 Intake and Output 06/11/17 06/12/17 06/12/17 23:59 07:59 15:59 Intake Total 0 / 0 Output Total 1000 / 1000 0 / 0 Balance -1000 / -1000 0 / 0 Intake: Oral 0 / 0 Output: Urine 1000 / 1000 0 / 0 Other: Blood Glucose* 288 413 - General Appearance General appearance: well-developed, well-nourished, appears started age, obese Neck: no JVD, no thyromegaly, supple Respiratory: no kyphosis, no scoliosis, rales (mild bilateral lower lobe rales present. ) Cardiology: no murmurs, no rub, no gallops, no edema, regular rate, regular rhythm, normal S1, normal S2 - Dialysis Access Dialysis Vascular Access: Arteriovenous Fistula (AV fistuala present on right forearm.) bruit: Yes Gastrointestinal: normoactive bowel sounds, no tenderness, no guarding, no masses, obese Integumentary: no rash, warm and dry, hyperpigmentation (present on both lower extremities) Neurologic: no focal deficit, alert and oriented x3, strength 5/5 Musculoskeletal: no deformities, no erythema, no cyanosis, no clubbing Psychiatric: mood/affect appropriate Results - Lab Results 06/12/17 01:12 06/12/17 01:12 Most recent lab results Calcium 7.8 mg/dL (8.6-10.8) L 06/12/17 01:12 Phosphorus 5.7 mg/dL (2.3-4.7) H 06/12/17 04:01 Magnesium 2.0 mg/dL (1.6-2.6) 06/12/17 04:01 Consult Discharge Plan - Plan Referrals: NONE,PCP [Primary Care Provider] -
[2017-06-12 11:48] LABS: Hepatitis B Surface Antibody 0.17 mIU/mL; Hepatitis B Surface Antigen Nonreactive (Nonreactive)
--- NOTE | 2017-06-12 12:06 | Event Note ---
Date of Encounter: 06/12/17 Time of Encounter: 09:20 Nephrology: Dialysis note Pt was s/e while on HD. He voiced already having less shortness of breath compared to yesterday. His was present and updated. He had only trace LE pitting pretibial edema b/l, rhonchi in the bases. BPs were well maintained.
--- NOTE | 2017-06-12 13:53 | Electrocardiograph Report ---
[address] [place], [place] [address] Test Date: 2017-06-12 Pat Name: Deepika Sandhu Department: 103 Room: PSYCHIATRIC Gender: M Pathological Technician: DIANA : 1960 Requested By: Ra Chahal Order Number: [id number] Reading MD: Sita Orta Measurements Intervals [place] Rate: 107 P: 60 WV: 156 QRS: 85 QRSD: 114 T: 61 QT: 371 QTc: 434 Interpretive Statements SINUS TACHYCARDIA INTRAVENTRICULAR CONDUCTION DELAY ARTIFACT Electronically Signed On 06-12-2017 13:51:41 EDT by Sita Orta
[2017-06-12] MEDS ORDERED: Insulin LISPRO 300 UNITS/3 ML VIAL SQ SCH ×5 (16:12→21:00)
[2017-06-12] MEDS: Calcium Acetate 667 MG CAPSULE PO SCH (17:54)
[2017-06-12] MEDS ORDERED: Insulin DETEMIR 100 UNIT/ML X5UNITS SQ SCH ×2 (21:00)
[2017-06-12] MEDS: Lisinopril 20 MG TABLET PO SCH (21:36)
[2017-06-13] MEDS: Ipratropium/Albuterol Neb 3 ML IH SCH ×4 (04:35→17:00)
[2017-06-13] MEDS: *HR* Heparin 5,000 UNIT/ML VIAL SQ SCH ×2 (06:06→13:42)
[2017-06-13] MEDS ORDERED: Albumin 25% 25gram/100mL 25 GM/100 ML IV.SOLN IVPB PRN (07:25)
[2017-06-13] MEDS ORDERED: 0.9 % Sodium Chloride 250 ML IVC PRN (07:25)
[2017-06-13] MEDS: Lisinopril 20 MG TABLET PO SCH (08:02)
[2017-06-13] MEDS: Insulin LISPRO 300 UNITS/3 ML VIAL SQ SCH ×2 (08:02→12:50)
[2017-06-13] MEDS: Calcium Acetate 667 MG CAPSULE PO SCH ×2 (08:07→12:51)
--- NOTE | 2017-06-13 08:44 | Nephrology Progress Note ---
Date of Encounter: 06/13/17 Time of Encounter: 08:42 - Assessment and Plan (1) Volume overload Current Visit: No Status: Acute UF today, will challenge EDW Will use albumin if necessary for low b/p; currently b/p 147/97 Qualifiers: Hypervolemia type: unspecified Qualified Code(s): E87.70 - Fluid overload, unspecified (2) End stage renal disease on dialysis Current Visit: No Status: Chronic UF today then HD tomorrow No labs done today Continue renal diet Avoid nephrotoxins if possible (3) Acute exacerbation of CHF (congestive heart failure) Current Visit: No Status: Acute per primary team Continue fluid restrictions Strict I/Os UF today Qualifiers: Congestive heart failure type: systolic Qualified Code(s): I50.23 - Acute on chronic systolic (congestive) heart failure Subjective Principal diagnosis: acute exacerbation of CHF, ESRD on dialysis Interval history: Patient seen and examined while in dialysis. States he is breathing much better today. Objective - Vital Signs Vital signs: Vital Signs Temp Pulse Resp BP Pulse Ox 06/13/17 08:09 90 06/13/17 07:59 97.9 F 86 18 147/97 93 06/13/17 07:37 16 94 06/13/17 04:35 14 98 06/13/17 04:15 80 06/13/17 04:10 97.5 F L 90 18 153/101 90 06/13/17 00:55 94 06/12/17 23:25 98.6 F 90 22 147/94 98 06/12/17 23:18 14 06/12/17 23:16 14 98 06/12/17 21:15 97.9 F 91 18 149/88 91 06/12/17 20:25 14 98 06/12/17 19:35 92 Intake and Output 06/12/17 06/13/17 06/13/17 23:59 07:59 15:59 Output Total 400 / 400 Balance -400 / -400 Output: Urine 400 / 400 Other: Weight 112.4 kg Blood Glucose* 439 213 Patient Weight 06/13/17 23:59 Weight 112.4 kg - General Appearance General appearance: Present: well-developed, well-nourished, obese EENT: Present: ATNC, mucous membranes moist, hearing intact, vision intact Neck: Present: supple Respiratory: Present: clear Cardiology: Present: edema, normal S1, normal S2 Dialysis Vascular Access: Arteriovenous Fistula Gastrointestinal: Present: no tenderness, no guarding, obese Integumentary: Present: warm and dry Neurologic: Present: alert and oriented x3 Psychiatric: Present: mood/affect appropriate, cooperative - Lab 06/12/17 01:12 06/12/17 01:12 Most recent lab results Calcium 7.8 mg/dL (8.6-10.8) L 06/12/17 01:12 Phosphorus 5.7 mg/dL (2.3-4.7) H 06/12/17 04:01 Magnesium 2.0 mg/dL (1.6-2.6) 06/12/17 04:01 Consult Discharge Plan - Plan Referrals: NONE,PCP [Primary Care Provider] -
[2017-06-13] MEDS ORDERED: Famotidine 20 MG/2 ML VIAL IVP SCH (09:00)
[2017-06-13] MEDS ORDERED: Folic Acid 1 MG TABLET PO SCH (09:00)
[2017-06-13] MEDS ORDERED: Aspirin 81 MG TAB.CHEW PO SCH (09:00)
[2017-06-13] MEDS ORDERED: Vitamin B Complex/Vit C/Vit E 1 EACH TABLET PO SCH (09:00)
[2017-06-13] MEDS ORDERED: Cholecalciferol (D-3) 1,000 UNIT TABLET PO SCH (09:00)
[2017-06-13] MEDS ORDERED: 0.9 % Sodium Chloride 2,000 ML ONE (12:56)
--- NOTE | 2017-06-13 15:08 | Discharge Summary ---
Date of Encounter: 06/13/17 Time of Encounter: 13:30 - Discharge Diagnosis (1) Acute and chronic respiratory failure with hypoxia Priority: Primary Status: Acute Comments: Acute on chronic respiratory failure with hypoxia and hypercapnia secondary to ESRD and fluid overload and CHF Fluid overload is now improved after hemodialysis Continue home meds (2) Congestive heart failure Priority: Primary Status: Acute Comments: Acute exacerbation of chronic systolic CHF with LVEF 40% - symptoms now improved Continue home meds Qualifiers: Congestive heart failure type: unspecified congestive heart failure type Congestive heart failure chronicity: unspecified congestive heart failure chronicity Qualified Code(s): I50.9 - Heart failure, unspecified (3) ESRD (end stage renal disease) Priority: Primary Status: Chronic Comments: ESRD on hemodialysis Monday Continue regular hemodialysis sessions Follow up with Nephrology regularly (4) COPD (chronic obstructive pulmonary disease) Priority: Secondary Status: Chronic Comments: COPD, stable, not in exacerbation Continue home meds Qualifiers: COPD type: unspecified COPD Qualified Code(s): J44.9 - Chronic obstructive pulmonary disease, unspecified (5) Coronary artery disease Priority: Secondary Status: Chronic Comments: Stable, continue home meds Qualifiers: Coronary Disease-Associated Artery/Lesion type: bypass graft [place] vs. 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 Qualified Code(s) : E11.8 - Type 2 diabetes mellitus with unspecified complications; Z79.4 - alf (current) use of insulin - Discharge Medications Prescriptions: Ipratropium/Albuterol Neb [Duoneb] 3 ml IH [id number] PRN #30 inhsol PRN Reason: Shortness Of Breath/Wheezing Nicotine Patch [Nicoderm] 21 mg TD DAILY #30 patch.[id number] Home Medications: Aspirin 81 mg PO DAILY 04/12/15 [History] Insulin Glargine,Hum.rec.anlog [Lantus Solostar] 20 unit SQ HS #0 07/13/16 [Rx] Albuterol Sulfate [Ventolin Hfa] 2 puff IH Q6H PRN 07/17/16 [History] Oxygen 3 l .ROUTE DAILY 07/17/16 [History] Ergocalciferol (VITAMIN D2) [Drisdol (50,000 Unit)] 50,000 unit PO QWEEK [History] Carvedilol [Coreg] 12.5 mg PO BIDWM 09/05/16 [History] Vitamin B Complex [B Complex] 1 tab PO DAILY 09/05/16 [History] Folic Acid 1 mg PO DAILY 09/29/16 [History] Insulin LISPRO [Humalog] 1 unit SQ TID 09/29/16 [History] Calcium Acetate [Phos-LO] 667 mg PO TIDWM 06/12/17 [History] Lisinopril [Zestril] 20 mg PO BID 06/12/17 [History] Atorvastatin [Lipitor] 40 mg PO HS tablet 06/13/17 [Rx] HYDROcodone/Acet 5/325 mg [[place] 5-325 mg] 1 tab PO Q6H PRN tablet 06/13/17 [Rx ] Ipratropium/Albuterol Neb [Duoneb] 3 ml IH [id number] PRN #30 inhsol 06/13/17 [Rx] Lisinopril [Zestril] 10 mg PO BID tablet 06/13/17 [Rx] Nicotine Patch [Nicoderm] 21 mg TD DAILY #30 patch.[email or web address] 06/13/17 [Rx] Allergies/Adverse Reactions: 3 Allergy/AdvReac Type Severity Reaction Status Date / Time No Known Allergies Allergy Verified 07/17/16 10:10 Date of admission: 06/12/17 15:24 Primary care physician: PCP NONE Consults: 06/13/17 07:30 Consult to Dialysis [CONS] ONCE Anticipated date of discharge: 06/13/17 - Patient Status Disposition: Home, Self-Care Condition: Good Functional capacity at discharge: independent ambulation Overall status at discharge: patient is progressing back to baseline - Discharge Instructions Instructions: Heart Failure (DC), Acute Respiratory Distress Syndrome (DC), Diabetes Mellitus Type 2 in Adults (DC), Chronic Obstructive Pulmonary Disease ( DC), Chronic Hypertension (DC) Follow Up With: NONE,PCP [Primary Care Provider] - Marshall Church, DO [Partnered Physician] - Additional Instructions: - Continue all meds as per discharge instructions - Returns if symptoms worsen - Continue regular hemodialysis sessions - Follow up with PCP and nephrology - Diet and Activity Activity: increase activity as tolerated, resume usual activities as tolerated Diet: advance to your usual diet Hospital course: Mr. Sandhu is a 56 year old male with past medical history of end-stage renal disease on hemodialysis, CHF, coronary artery disease status post CABG, diabetes , hyperlipidemia, hypertension and osteoporosis. He presented to the ED with complaints of shortness of breath. Patient is apparently mowing the lawn the day prior to admission. He then felt thirsty and states he drank more water than what he should have. On initial presentation he was hypoxic at 75% O2 sat on arrival. He had labored breathing and was not respiratory distress. BNP peptide was 2000. Patient was initially placed on BiPAP and was admitted to the ICU. Symptoms slowly improved. Patient was evaluated by nephrology and underwent hemodialysis twice during his stay in the hospital. Patient states he is now feeling better and states he is back to baseline. He has no other acute complaints. He has been advised about smoking cessation. He has been advised to follow-up with his regular hemodialysis sessions. Patient has also been given a prescription for a nebulizer machine and DuoNeb breathing treatments. Patient has been advised to return if symptoms worsen. He has been advised to follow-up with his primary care physician and huc. Patient was explained about his condition and plan of care in detail. He understood and agreed. No unanswered questions. Patient is being discharged in stable condition. Time spent discussing smoking cessation with patient: 3 to 10 minutes - Time Spent with Patient Total time spent providing and/or coordinating discharge services: Less than 30 minutes - Constitutional Vitals: Temp Pulse Resp BP Pulse Ox 98.2 F 80 20 149/96 92 06/13/17 13:36 06/13/17 14:22 06/13/17 13:36 06/13/17 14:22 06/13/17 13:36 General appearance: Present: cooperative, A&O X 3, pleasant, no acute distress, obese, answers questions appropriately - Head Head exam: Present: atraumatic - Eye Eye exam: Present: EOMI - ENT ENT exam: Present: mucous membranes moist - Respiratory Respiratory exam: Present: CTAB. Absent: accessory muscle use, chest wall tenderness, rales, rhonchi, wheezes, tachypnea - Cardiovascular Cardiovascular exam: Present: RRR, +S1, +S2, systolic murmur - GI/Abdominal GI/Abdominal exam: Present: soft. Absent: distended, firm, guarding, tenderness - Extremities Exam Extremities exam: Present: pedal edema (Mild edema), radial pulses palpable and symmetrical. Absent: calf tenderness, cyanotic - Neurological Exam Neurological exam: Present: alert, oriented X3, no focal deficits. Absent: facial droop, speech deficit
[2017-06-13 16:07] VITALS: BP 164/111
== END 2017-06-13 17:09 | disposition home or self-care (01) | DRG 291 ==
LOC: 2NNU 00:44 → EMEROO 00:44 → SUATTDRO 02:17 → ICNU 02:23 → 2NNU 15:20
PROVIDERS: ADMIT Hospitalist; ATTEND Internal Medicine